=== PATIENT | male | born 1960 | race Caucasian/White ===

== ENCOUNTER → 2018-05-09 13:47 | Outpatient (BNVA) | payer OTHER, SELFPAY | PROVIDERS: PCP Emergency Medicine; Referring Provider Emergency Medicine; Visit Provider Student in an Organized Health Care Education/Training Program | DX: M25.552 Pain in left hip (principal) | CPT/HCPCS: 99213 ==

== ENCOUNTER 2018-05-17 01:15 | Outpatient (CLI) | payer OTHER, SELFPAY ==
--- NOTE | 2018-05-17 07:29 | DI.RAD_ITS ---
SYMPTOMS/DIAGNOSIS: LT HIP PAIN, M25.552 FLUOROSCOPY OF THE LEFT HIP: Fluoroscopy Time: .02 min Fluoroscopy was provided for Dr. Lerma while performing a left hip joint injection. A single hardcopy images shows a needle projecting at the superolateral aspect of the femoral head. Contrast is seen in the hip joint space. Please see procedure note for details.
[2018-05-17] MEDS: Omnipaque 300 MG/ML 10 ML BTL IJ (11:11)
[2018-05-17] MEDS: Bupivacaine 0.5% Pres-Free 10 ML VIAL 5 ML IJ (11:13)
[2018-05-17] MEDS: methylPREDNISolone ACETATE 80 MG/ML VIAL IM (11:13)
--- NOTE | 2018-05-17 12:22 | W.PROCNOTE ---
Date of service: 05/17/18 Time of Service: 09:43 Procedure Note Date of procedure: 05/17/18 Procedure: Left Hip Injection with Fluoroscopic Guidance Surgeon/Proceduralist/Physician: Jostin Lerma Procedure Diagnosis: Left Hip Osteoarthritis Procedure Indications: John has had persistent pain of the LEFT hip and groin. Noninvasive measures have been tried. He has had a previously successful injection and do the recurrence of pain desired another. I had discussed the risks of the procedure and the patient elected to proceed. Procedure Description: John was greeted in the flouroscopy room. The correct side was identified and the consent was reviewed with the patient and signed. The patient was then placed in the supine position on the fluoroscopy table. The LEFT hip was then prepped with Chloraprep. The anterolateral injection starting point was identiifed by bony landmarks and fluoroscopy. The skin and soft tissue in the tract of the injection was anesthetized with 1% Lidocaine. A spinal needle was then inserted deep into the hip joint at the level of the lateral femoral neck under fluoroscopic guidance. A small amount of Omnipaque solution was injected to confirm intraarticular placement. Once confirmed, the hip was injected with 6cc of 0.5% Bupivicaine and 80mg of Depo-Medrol. A bandaid was placed on the injection site. The patient tolerated the procedure well and noted improvement in pre-injection pain.
== END 2018-05-17 01:35 ==
PROVIDERS: PCP Emergency Medicine; Visit Provider Student in an Organized Health Care Education/Training Program
DX: M25.552 Pain in left hip (principal); M16.12 Unilateral primary osteoarthritis, left hip
CPT/HCPCS: 20610; 77002; J1040

== ENCOUNTER 2018-06-05 09:02 | Outpatient (CLI) | payer OTHER, SELFPAY ==
[2018-06-05 11:31] LABS: ALT 57 U/L (12-78); AST 37 U/L (15-37); Albumin 3.7 g/dL (3.4-5.0); Alkaline Phosphatase 55 U/L (46-116); Anion Gap 8.6 mmol/L (3-11); BUN 25 mg/dL (7-18); Bilirubin, Total 0.5 mg/dL (0.2-1.0); CO2 28.4 mmol/L (21.0-32.0); CREATININE 0.92 mg/dL (0.70-1.30); Calcium 8.3 mg/dL (8.5-10.1); Chloride 103 mmol/L (98-107); GGT 67 U/L (15-85); Glucose 98 mg/dL (70-100); Potassium 4.2 mmol/L (3.5-5.1); Sodium 140 mmol/L (136-145); Total Protein 6.5 g/dL (6.4-8.2)
== END 2018-06-05 09:22 ==
PROVIDERS: PCP Emergency Medicine; Visit Provider Emergency Medicine
DX: I10 Essential (primary) hypertension (principal); F32.9 Major depressive disorder, single episode, unspecified; K52.9 Noninfective gastroenteritis and colitis, unspecified
CPT/HCPCS: 36415; 80053; 82977

== ENCOUNTER 2018-12-20 08:12 | Outpatient (CLI) | payer OTHER, SELFPAY ==
[2018-12-20 11:33] LABS: Abs Immature Grans 0.01 k/cumm (0.0-0.09); Absolute Basophil Count 0.03 k/cumm (0.0-0.2); Absolute Eosinophil Count 0.14 k/cumm (0.0-0.7); Absolute Lymphocyte Count 1.19 k/cumm (1.2-3.4); Absolute Monocyte Count 0.42 k/cumm (0.11-0.7); Absolute Neutrophil Count 2.83 k/cumm (1.2-6.7); Basophils % 0.6; HCT 44.3 % (40.0-50.0); Immature Grans % 0.2; Lymphocytes % 25.8; Mean Corp. HGB Concentration 33.9 g/dL (32.0-36.0); Mean Corpuscular Hemoglobin 30.8 pg (27.0-33.0); Mean Platelet Volume 9.8 fL (8.0-11.0); Monocytes % 9.1; Neutrophils % 61.3; Platelet Count 280 x1000/uL (130-400); RBC 4.87 m/cumm (4.50-6.00); RBC Distribution Width 13.3 % (11.8-14.1); White Blood Cell Count 4.62 k/cumm (4.4-10.8)
[2018-12-20 11:48] LABS: ALT 45 U/L (12-78); AST 23 U/L (15-37); Albumin 3.9 g/dL (3.4-5.0); Alkaline Phosphatase 59 U/L (46-116); Anion Gap 9.7 mmol/L (3-11); BUN 19 mg/dL (7-18); Bilirubin, Total 0.4 mg/dL (0.2-1.0); C-Reactive Protein 0.13 mg/dL (0.0-0.3); CO2 28.3 mmol/L (21.0-32.0); Calcium 8.8 mg/dL (8.5-10.1); Chloride 103 mmol/L (98-107); Glucose 113 mg/dL (70-100); Potassium 4.3 mmol/L (3.5-5.1); Sodium 141 mmol/L (136-145); Total Protein 6.8 g/dL (6.4-8.2)
[2018-12-20 13:45] LABS: ESR 12 MM/HR (1-20)
[2018-12-21 09:46] LABS: Cyclic Citrullinated Peptide <2.5 U/mL (<5.0)
[2018-12-21 10:35] LABS: PSA, Screening 0.8 ng/ml (0-3.5)
[2018-12-21 11:22] LABS: Rheumatoid Factor <8 IU/mL (<12.5)
== END 2018-12-20 08:32 ==
PROVIDERS: PCP Emergency Medicine; Visit Provider Emergency Medicine
DX: K51.90 Ulcerative colitis, unspecified, without complications (principal); M25.50 Pain in unspecified joint; Z12.5 Encounter for screening for malignant neoplasm of prostate
CPT/HCPCS: 36415; 80053; 84153; 85652; 86200; 85025; 86140; 86431

== ENCOUNTER → 2019-03-14 12:47 | Outpatient (BNVA) | payer OTHER, SELFPAY | PROVIDERS: PCP Emergency Medicine; Referring Provider Emergency Medicine; Visit Provider Nurse Practitioner Gerontology | DX: N40.1 Benign prostatic hyperplasia with lower urinary tract symptoms (principal); N13.8 Other obstructive and reflux uropathy; R35.0 Frequency of micturition | CPT/HCPCS: 51798; 81003; 99204; 99214 ==

== ENCOUNTER 2019-03-14 16:04 | Outpatient (REF) | payer OTHER, SELFPAY | END 2019-03-14 16:24 | LOC: LBN 16:04 | PROVIDERS: PCP Emergency Medicine; Visit Provider Nurse Practitioner Gerontology | DX: R35.0 Frequency of micturition (principal) | CPT/HCPCS: 87086 ==

== ENCOUNTER → 2019-05-14 08:22 | Outpatient (BNVA) | payer OTHER, SELFPAY | PROVIDERS: PCP Emergency Medicine; Referring Provider Emergency Medicine; Visit Provider Nurse Practitioner Gerontology | DX: N32.81 Overactive bladder (principal) | CPT/HCPCS: 99213 ==

== ENCOUNTER → 2019-06-13 14:41 | Outpatient (BNVA) | payer OTHER, SELFPAY | PROVIDERS: PCP Emergency Medicine; Referring Provider Emergency Medicine; Visit Provider Nurse Practitioner Gerontology | DX: N32.81 Overactive bladder (principal) | CPT/HCPCS: 51798; 99213 ==

== ENCOUNTER 2021-01-13 14:09 | Outpatient (REF) | payer OTHER, SELFPAY ==
[2021-01-13 14:35] LABS: Hemoglobin A1C 5.5 % (<5.7)
== END 2021-01-13 14:10 | disposition home or self-care (01) ==
LOC: LBN 14:09
PROVIDERS: PCP Emergency Medicine; Visit Provider Emergency Medicine
DX: R63.1 Polydipsia (principal)
CPT/HCPCS: 83036

== ENCOUNTER 2021-03-12 14:51 | Outpatient (REF) | payer OTHER, SELFPAY ==
[2021-03-12 16:06] LABS: Abs Immature Grans 0.01 10^3/uL (0.0-0.06); Absolute Basophil Count 0.05 10^3/uL (0.0-0.2); Absolute Lymphocyte Count 1.85 10^3/uL (1.2-3.4); Absolute Monocyte Count 0.59 10^3/uL (0.1-0.8); Absolute Neutrophil Count 4.34 10^3/uL (1.2-6.7); Basophils % 0.7; Eosinophils % 1.4; HCT 43.3 % (40.0-50.0); HGB 14.6 g/dL (13.5-17.5); Immature Grans % 0.1; Lymphocytes % 26.7; MCH 30.1 pg (27.0-33.0); MCHC 33.7 % (32.0-36.0); MCV 89.3 fL (80-95); MPV 9.6 fL (8.0-11.0); Monocytes % 8.5; Neutrophils % 62.6; Nucleated RBC 0 %; Platelet Count 295 10^3/uL (130-400); RBC 4.85 10^6/uL (4.36-5.78); RDW 12.8 % (11.8-14.1); WBC 6.94 10^3/uL (4.4-10.8)
[2021-03-12 16:24] LABS: ALT 34 U/L (16-63); AST 21 U/L (15-37); Albumin 4.5 g/dL (3.4-5.0); Alkaline Phosphatase 58 U/L (46-116); Anion Gap 10.8 mmol/L (3-11); BUN 17 mg/dL (7-18); Bilirubin, Total 0.4 mg/dL (0.2-1.0); CO2 26.2 mmol/L (21.0-32.0); CREATININE 0.9 mg/dL (0.70-1.30); Calcium 9.1 mg/dL (8.5-10.1); Calculated LDL 138 mg/dL (<100); Chloride 104 mmol/L (98-107); Cholesterol 208 mg/dL (<200); Glucose 89 mg/dL (74-106); HDL Cholesterol 58 mg/dL (40-60); Potassium 4.1 mmol/L (3.5-5.1); Sodium 141 mmol/L (136-145); Total Protein 7.3 g/dL (6.4-8.2); Triglyceride 64 mg/dL (<150)
[2021-03-15 08:28] LABS: PSA, Screening 0.9 ng/mL (0.0-4.5)
== END 2021-03-12 14:52 | disposition home or self-care (01) ==
LOC: LBN 14:51
PROVIDERS: Family Medicine; PCP Nurse Practitioner Family; Visit Provider Nurse Practitioner Family
DX: Z13.220 Encounter for screening for lipoid disorders (principal); Z00.00 Encounter for general adult medical examination without abnormal findings; L93.0 Discoid lupus erythematosus; Z12.5 Encounter for screening for malignant neoplasm of prostate
CPT/HCPCS: 80053; 80061; 84153; 85025

== ENCOUNTER 2022-02-09 02:44 | Outpatient (CLI) | payer OTHER, SELFPAY ==
[2022-02-09 16:26] LABS: ALT 44 U/L (16-63); AST 33 U/L (15-37); Albumin 4.2 g/dL (3.4-5.0); Alkaline Phosphatase 57 U/L (46-116); Anion Gap 9.3 mmol/L (3-11); BUN 24 mg/dL (7-18); Bilirubin, Total 0.4 mg/dL (0.2-1.0); CO2 25.7 mmol/L (21.0-32.0); Calcium 8.8 mg/dL (8.5-10.1); Chloride 104 mmol/L (98-107); Glucose 78 mg/dL (74-106); Potassium 3.6 mmol/L (3.5-5.1); Sodium 139 mmol/L (136-145); Total Protein 7.4 g/dL (6.4-8.2)
== END 2022-02-09 02:45 | disposition home or self-care (01) ==
LOC: LBO 02:44
PROVIDERS: PCP Nurse Practitioner Family; Visit Provider Nurse Practitioner Family
DX: I10 Essential (primary) hypertension (principal)
CPT/HCPCS: 36415; 80053

== ENCOUNTER 2022-03-16 09:20 | Outpatient (CLI) | payer OTHER, SELFPAY ==
[2022-03-16 12:42] LABS: TSH (W/Ref FT4) 2.72 uIU/mL (0.36-3.74)
[2022-03-16 22:53] LABS: PSA, Screening 1.8 ng/mL (<=4.5)
== END 2022-03-16 09:21 | disposition home or self-care (01) ==
LOC: LOS 09:20
PROVIDERS: PCP Nurse Practitioner Family; Referring Provider Nurse Practitioner Family; Visit Provider Nurse Practitioner Family
DX: R68.89 Other general symptoms and signs (principal); N40.1 Benign prostatic hyperplasia with lower urinary tract symptoms; N13.8 Other obstructive and reflux uropathy; Z12.5 Encounter for screening for malignant neoplasm of prostate
CPT/HCPCS: 36415; 84153; 84443

== ENCOUNTER 2022-06-10 11:17 | Outpatient (CLI) | payer OTHER, SELFPAY ==
--- NOTE | 2022-06-10 11:00 | DI.RAD_ITS ---
Exam(s) XR HIP LT COMPLETE AP PELVIS EXAM: XR HIP LT COMPLETE AP PELVIS CLINICAL HISTORY: pain in hip. TECHNIQUE: 2D digital imaging was performed. FINDINGS: Two views: No evidence of pelvic nor hip fracture. No significant joint space narrowing. No osteophytes at the femoral head levels. There is small degenerative subarticular cysts in the superolateral aspects of both acetabuli. Bone density normal. No osseous lesions. IMPRESSION: As above but no joint space narrowing. DATA REPOSITORY: RADIATION DOSE DELIVERED:
--- NOTE | 2022-06-10 11:30 | DI.RAD_ITS ---
Exam(s) XR LUMBAR SPINE AP, LAT EXAM: XR LUMBAR SPINE AP, LAT CLINICAL HISTORY: pain. TECHNIQUE: 2D digital imaging was performed. COMPARISON: No exams were available for comparison FINDINGS: Two views-AP and lateral: There are 5 vertebrae of lumbar configuration. There is no evidence of fracture or listhesis and the re are no pars defects. There is moderate disc space narrowing at L4-5 level. Mild disc space narrowing at L2-3 level althou gh there is some posterior osseous lipping at this level noted. Other disc spaces including L5-S1 ex hibit normal height. There is no scoliosis. Mild degenerative changes in the facets. Sacroiliac anthony ints appear unremarkable. No osseous lesions. IMPRESSION: Degenerative disc disease as described above. DATA REPOSITORY: RADIATION DOSE DELIVERED:
== END 2022-06-10 11:18 | disposition home or self-care (01) ==
PROVIDERS: PCP Nurse Practitioner Family; Referring Provider Nurse Practitioner Family; Visit Provider Physician Assistant Surgical
DX: M25.552 Pain in left hip (principal); M51.36 Other intervertebral disc degeneration, lumbar region
CPT/HCPCS: 72100; 73502

== ENCOUNTER → 2022-06-24 00:49 | Outpatient (CLI) | payer OTHER, SELFPAY ==
--- NOTE | 2022-06-24 07:30 | DI.MRI_ITS ---
Exam(s) MR LUMBAR SPINE WO EXAM: MR LUMBAR SPINE WO CLINICAL HISTORY: failed injections, acute rt hip pain, m25.551. TECHNIQUE: Multiplanar multisequence MRI of the Lumbar spine was performed. COMPARISON: MR MRI - LUMBAR SPINE WO CONTRAST from 06/10/2010 CR XR LUMBAR SPINE AP, LAT from 06/10/2022 FINDINGS: Conus medullaris is at normal level. There is no evidence of conus mass nor subjacent clumping of in trathecal nerve roots to suggest arachnoiditis. The distal thecal sac appears unremarkable.There is no evidence of Tarlov intrasacral cysts nor other significant findings within the sacral canal Bones:There are no fractures nor ominous osseous lesions in the lumbar vertebral bodies and visualize d sacrum. With respect to the individual levels... T12-L1: Unremarkable L1-2: Normal disc height and signal. No disc herniation nor central canal stenosis.No foraminal steno sis L2-3: Mild decreased disc height. Broad symmetrical annular bulging. Mild-moderate central spinal c anal stenosis due to the broad annular bulging, short AP dimensions the pedicles and mild degenerativ e changes in the facet joints the annular bulging extends into the floor both exiting neural foramina but there is no prominent foraminal stenosis evident on either side. L3-4: This level exhibits minimal disc space narrowing. Anterior osseous lipping. Posteriorly there i s broad annular bulging, most prominent central subligamentous. There is severe central spinal canal stenosis at this level due to the broad annular bulging, short AP dimensions of the pedicles. There i s mild degenerative change in the facets. Annular bulging extends into the exiting neural foramen tod or but there is no significant foraminal stenosis. L4-5: This level exhibits moderate disc height loss and Modic type 2 sub endplate fatty marrow change s on the left side of this disc space. There is symmetrical annular bulging which extends into the fl oor of the exiting neural foramina bilaterally. There is mild-moderate central spinal canal stenosis. Mild foraminal stenosis on the left side. Mild-moderate on the right side where there is slightly mo re disc height loss. Only mild facet joint degenerative changes noted. L5-S1: This level exhibits normal disc height and signal. There is no evidence of disc herniation or central spinal canal stenosis at this level. Also no foraminal stenosis at this level. Facet joints a ppear unremarkable at this level. Soft tissues: paraspinal soft tissues appear unremarkable. IMPRESSION: 1. Multilevel central spinal canal stenosis, most evident at L3-4 level, as described above. 2. There is multilevel spinal canal stenosis due to broad annular bulging at these levels as well is developmental short AP dimensions of the pedicles. There is only mild facet arthropathy. 3. Although there is significant multilevel central canal stenosis there is only mild foraminal steno sis, this related to the relatively preserved disc height. There is an element of foraminal stenosis on the right side at L4-5 level; less so at the other the exiting neural foramina. 4. The L5-S1 level appears unremarkable and is most probably stabilized by an element of sacralizatio n of the L5 segment at the level of the transverse processes. DATA REPOSITORY:
== END ==
PROVIDERS: PCP Nurse Practitioner Family; Visit Provider Nurse Practitioner Family
DX: M48.061 Spinal stenosis, lumbar region without neurogenic claudication (principal); M48.07 Spinal stenosis, lumbosacral region
CPT/HCPCS: 72148

== ENCOUNTER 2022-12-16 08:47 | Outpatient (CLI) | payer OTHER, SELFPAY ==
[2022-12-16 12:52] LABS: HCT 42.3 % (40.0-50.0); HGB 14.4 g/dL (13.5-17.5); MCH 30.8 pg (27.0-33.0); MCV 90 fL (80-95); MPV 9.7 fL (8.0-11.0); Platelet Count 327 10^3/uL (130-400); RBC 4.68 10^6/uL (4.36-5.78); RDW 13.2 % (11.8-14.1); RDW-SD 43.6 fL; WBC 6.53 10^3/uL (4.4-10.8)
[2022-12-16 13:05] LABS: ALT 47 U/L (16-63); AST 27 U/L (15-37); Albumin 4.2 g/dL (3.4-5.0); Alkaline Phosphatase 61 U/L (46-116); Anion Gap 7.9 mmol/L (3-11); BUN 21 mg/dL (7-18); Bilirubin, Total 0.5 mg/dL (0.2-1.0); CO2 28.1 mmol/L (21.0-32.0); CREATININE 0.9 mg/dL (0.70-1.30); Calcium 8.9 mg/dL (8.5-10.1); Chloride 104 mmol/L (98-107); Estimated GFR 96.57 (mL/min/1.73m2); Glucose 110 mg/dL (74-106); Magnesium 2.2 mg/dL (1.8-2.4); Potassium 3.9 mmol/L (3.5-5.1); Sodium 140 mmol/L (136-145); Total Protein 7.5 g/dL (6.4-8.2)
[2022-12-19 10:05] LABS: Lyme Ab w Rflx to Lyme Confirm Negative (Negative)
[2022-12-20 15:36] LABS: Anaplasma phagocytophilum Negative (Negative); B. miyamotoi PCR Negative (Negative); Babesia divergens/MO-1 Negative (Negative); Babesia duncani Negative (Negative); Babesia microti Negative (Negative); Ehrlichia chaffeensis Negative (Negative); Ehrlichia ewingii/canis Negative (Negative); Ehrlichia muris eauclairensis Negative (Negative)
== END 2022-12-16 08:48 | disposition home or self-care (01) ==
LOC: LOS 08:47
PROVIDERS: PCP Nurse Practitioner Family; Referring Provider Nurse Practitioner Family; Visit Provider Nurse Practitioner Family
DX: R53.83 Other fatigue (principal); W57.XXXA Bitten or stung by nonvenomous insect and other nonvenomous arthropods, initial encounter; T14.8XXA Other injury of unspecified body region, initial encounter
CPT/HCPCS: 36415; 80053; 85027; 87798; 83735; 86618

== ENCOUNTER 2023-03-17 11:49 | Outpatient (CLI) | payer OTHER, SELFPAY | END 2023-03-17 11:50 | disposition home or self-care (01) | LOC: LOS 11:49 | PROVIDERS: PCP Nurse Practitioner Family; Referring Provider Nurse Practitioner Family; Visit Provider Nurse Practitioner Family | DX: N13.8 Other obstructive and reflux uropathy (principal); N40.1 Benign prostatic hyperplasia with lower urinary tract symptoms | CPT/HCPCS: 36415; 84154 ==

== ENCOUNTER 2023-06-05 07:34 | Day surgery (SDC) | payer OTHER, SELFPAY ==
--- NOTE | 2023-06-04 18:36 | W.PM.DSUDISC ---
Date of service: 06/05/23 Time of Service: 09:32 Discharge Plan Disposition Patient Disposition: Home Condition: Good Discharge Details Reason For Visit: Screening colonoscopy Attending Provider: Koko Stevens Primary Care Provider: Juan Antonio Mccormick Home Meds and New Rx's Prescriptions: Continued sertraline 50 mg tablet 50 mg PO DAILY Qty: 90 3RF sertraline 100 mg tablet See Rx Instructions .ROUTE .COMPLEX Qty: 90 3RF Dose Instruction: take 1 tablet (100mg) by mouth daily Rx Instructions: take 1 tablet (100mg) by mouth daily tamsulosin 0.4 mg capsule 0.8 mg PO DAILY Qty: 180 0RF fluticasone propion-salmeterol [Advair Diskus] 250-50 mcg/dose blister with device 1 inh inhalation BID Qty: 60 3RF hydroxychloroquine [Plaquenil] 200 mg tablet 400 mg PO DAILY Qty: 180 3RF amlodipine 10 mg tablet 10 mg PO DAILY Qty: 90 3RF Discontinued polyethylene glycol 3350 17 gram/dose powder 238 g PO ONCE Qty: 238 0RF Rx Instructions: take per colonoscopy instructions bisacodyl [Dulcolax (bisacodyl)] 5 mg tablet,delayed release (DR/EC) 5 mg PO ONCE Qty: 4 0RF Rx Instructions: take per colonoscopy instructions Discharge Instructions Instructions: Diverticulosis (GEN), Colorectal Polyps (GEN), Diverticulosis Diet (GEN) Additional Instructions: John, we were able to complete your colonoscopy today without any difficulty. You have just a few tiny spots of inflammation within the rectal vault, which is consistent with your ulcerative colitis. Generally, it appears very well managed. I did find a total of 3 polyps. One was within the colon, approximately 50 cm from your anus, the other 2 were in the rectal vault. I removed all of these, and will send them out for an official pathology report. Once I have those results, I will be in touch with my recommendations for your next colonoscopy. Incidentally, you also have some diverticulosis. Diverticula are small weak spots in the colon wall that typically accumulate with age. I have attached some general information here regarding diverticulosis and its management. 1. If tolerated, consume a soft, low fiber diet for 1-2 days. 2. Do not drive, drink alcohol, operate machinery, make critical decisions, or do activities that require coordination or balance for 24 hours. 3. Because air was put into your colon during the procedure, expelling air from your rectum (passing gas or farting) is normal. 4. You may not have a bowel movement for 1-3 days because of the colonoscopy prep. This is normal. 5. Go directly to the emergency room if you notice any of the following: Develop chills (warm to touch), or if you have a thermometer and your temperature is above 101 Difficulty breathing or difficultly swallowing Persistent vomiting Severe abdominal pain, other than gas cramps Severe chest pain Black, tarry stools Any bleeding ? exceeding one tablespoon 6. Call your physician if the site where your intravenous was started becomes red, swollen, painful, and warm to touch. 7. Your physician has reviewed your pre-procedure medications. Please continue to take those medications as previously ordered. You will be given specific information/education regarding any changes to your medications before leaving. Activity:: Activity as Tolerated Diet:: As Tolerated Discharge Orders Discharge Orders: Discharge Order (Routine); Ordered 06/04/23 Ordered By: Koko Stevens
--- NOTE | 2023-06-04 18:37 | W.COLOREPORT ---
Date of service: 06/05/23 Time of Service: 09:35 Colonoscopy Report Date of procedure: 06/05/23 Pre-op diagnosis general: Screening colonoscopy Post-op diagnosis procedure note: other (Diverticulosis, polyps, ulcerative colitis) Procedure: Colonoscopy with polypectomy Surgeon: Koko Stevens Anesthesia Type: General:No Airway Estimated blood loss (mL): 5 Pathology: other (0.75 cm polyp at 50 cm, 0.25 cm polyps in the rectum x2) Complications: None Disposition: same day Indications: John is a 63 year old man with a history of adenomatous polyps who needs another screening colonoscopy Prep: Miralax/Dulcolax Procedure Start Time: 08:59 Procedure End Time: 09:18 Retraction Time: 11 Findings: Minimal rectal ulceration, rectal polyps x2, diverticulosis, colon polyp at 50 cm Procedure Description: After the induction of monitored anesthetic care, and with the patient in left lateral decubitus position, I began by performing an external anorectal exam.? Perineum and skin were normal, as was the anal verge.? There was no evidence of external hemorrhoids.? Next, I performed a digital rectal exam.? I did not appreciate any abnormal findings.? Next, I advanced a colonoscope into the rectal vault.? I performed retroflexion.? This appeared normal.? Within the rectum there were 2 small areas of inflammation. Both were flat, margins all looked healthy. They seem consistent with very well-controlled ulcerative colitis. Using insufflation, I then advanced the colonoscope beyond the rectal folds and into the sigmoid colon before advancing towards the cecum.? There was some sigmoid diverticulosis. The scope was noted to be in the cecum by identification of the ileocecal valve and appendiceal orifice.? I then began withdrawing the colonoscope using repeated irrigation as necessary for full evaluation of the colonic mucosa. Around 50 cm from the anal verge I identified a 0.75 cm polyp. ?It appeared sessile in character. ?I was able to remove this with multiple bites of a cold forcep. ?I examined the site, and there was minimal bleeding. ?Once this was completed, I continued to withdraw the scope and examine the remainder of the colonic mucosa.?Once the scope was withdrawn to the level of the rectum, great care was taken to examine portions of the rectal folds.? Within the rectal vault were two 0.25 cm sessile rectal polyps. These were also removed with cold forceps. There was minimal bleeding here. Finally, the scope was withdrawn and the patient was brought to the same-day surgery recovery unit as the anesthetic wore off. ?The findings and instructions were shared with the patient prior to discharge.
[2023-06-05 07:40] VITALS: BP 143/78; PULSE 62; RESP 16; TEMP 36.7; O2SAT 94
--- NOTE | 2023-06-05 08:24 | W.ANESPRE ---
General Info Date of Service Date Performed: 06/05/23 Height: 6 ft Weight: 90.9 kg Body Mass Index (BMI): 27.1 Surgical Procedure: Operation Date: 06/05/23 09:05 Proposed Procedure Side Surgeon yanely Stevens MD Meds Allergies and Home Medications Allergies Allergy/AdvReac Type Severity Reaction Status Date / Time Tetanus Vaccines and Toxoid Allergy Severe COLD Verified 06/02/23 09:52 [Tetanus Vaccines \T\ Toxoid] SWEATS naproxen AdvReac Unknown WORSENING Verified 06/02/23 09:52 ULCERATIVE COLITIS zolpidem AdvReac Unknown MUSCLE Verified 06/02/23 09:52 TWITCH Home Medication Medication Instructions Recorded fluticasone 250 mcg-salmeterol 50 1 inh inhalation BID #60 ea 03/24/21 mcg/dose blistr powdr for inhalation (Advair Diskus) hydroxychloroquine 200 mg tablet 400 mg (2 x 200 mg) PO DAILY 11/17/22 (Plaquenil) discoid lupus #180 tabs sertraline 100 mg tablet See Rx Instructions .Route 03/17/23 .COMPLEX #90 tabs sertraline 50 mg tablet 50 mg PO DAILY #90 tabs 03/17/23 tamsulosin 0.4 mg capsule 0.8 mg (2 x 0.4 mg) PO DAILY #180 03/17/23 caps amlodipine 10 mg tablet 10 mg PO DAILY #90 tabs 05/19/23 Current Visit Medications: Current Medications Generic Name Dose Route Start Last Admin Trade Name Freq PRN Reason Stop Dose Admin Hyoscyamine Sulfate 0.125 mg 06/04/23 18:39 Hyoscyamine 0.125 Mg Sl/Oral/Chew SL 07/04/23 18:38 DIRECTED PRN Ringer's Solution 1,000 mls @ 80 mls/hr 06/05/23 06:00 IV 07/02/23 23:59 INFUSION [facility] IV Miscellaneous Supplies 1 each 06/05/23 06:00 Iv Access IV 07/02/23 23:59 DIRECTED [facility] Ondansetron HCl 4 mg 06/04/23 18:39 Ondansetron 4 Mg/2 Ml Vial IVP 07/04/23 18:38 Q4H PRN PRN Nausea / Vomiting Sodium Chloride 0 ml 06/05/23 06:00 Normal Saline Flush 10 Ml Syr IV 07/02/23 23:59 PRN PRN Sodium Chloride 0 ml 06/05/23 06:00 Normal Saline 10 Ml Vial IJ 07/02/23 23:59 DIRECTED PRN Sterile Water 0 ml 06/05/23 06:00 Water,Injection,Sterile 10 Ml Vial IJ 07/02/23 23:59 DIRECTED PRN PFSH Active Problems Active Problems: Problem Status Onset Code Fatigue R53.83 Tick bite W57.XXXA Greater trochanteric bursitis of left hip M70.62 Acute right hip pain M25.551 Essential hypertension I10 Abdominal pain R10.9 Polydipsia R63.1 BPH w urinary obs/LUTS N40.1, N13.8 Ulcerative colitis K51.90 Tubular adenoma of colon D12.6 Sexual function problem F52.9 Irritable bowel syndrome without diarrhea 12/07/16 K58.9 Insomnia 12/07/16 G47.00 History of tobacco use Z87.891 Heart murmur R01.1 Diverticulosis of colon without diverticulitis K57.30 Discoid lupus erythematosus L93.0 Dermatitis L30.9 Depression 12/07/16 F32.9 Carpal tunnel syndrome 07/16/13 G56.00 Medical History Medical History Spinal stenosis surgery 2006 Medical History Comments:: current smokeless tobacco; last chewed evening 06/04 Surgical History Surgical History History of spinal surgery Status post appendectomy Status post rotator cuff repair (08/04/15) spinal repair (~2006) Rotator Cuff Repair 08/04/15 [facility];RIGHT Colonoscopy - [facility] 2009 Tobacco Smoking/Tobacco Use Status: Current every day Tobacco Type: smokeless tobacco Smokeless tobacco user: snuff Passive smoking exposure: Yes Second hand exposure: Yes Alcohol Alcohol Intake: former Substance Use Substance use: Never Substance use type: does not use Vital Signs and Lab Results Vital Signs Most Recent Vital Signs in EMR: Most Recent Vital Signs Temp Pulse Resp BP Pulse Ox 36.7 C 62 16 143/78 H 94 06/05/23 07:40 06/05/23 07:40 06/05/23 07:40 06/05/23 07:40 06/05/23 07:40 Lab Results Blood Type / Crossmatch: No Data to Display Complete Blood Count: No Data to Display Complete Metabolic Panel: No Data to Display Liver Function Panel: No Data to Display Coagulation Panel: No Data to Display Cardiac Panel: No Data to Display Arterial Blood Gas: No Data to Display Venous Blood Gas: No Data to Display Pancreas Panel: No Data to Display Thyroid Panel: No Data to Display Infectious Disease: No Data to Display Blood Cultures: No Data to Display Toxicology Panel: No Data to Display Anesthesia Assessment and Plan Anesthesia History Personal History: No History of Anesthesia Complications Family History: No Family History of Anesthesia Complications Exercise Tolerance Exercise Tolerance: Metabolic Equivalents>4 Pertinent Negatives Pertinent Negatives: No Symptoms of GERD and No History of CVA/TIA Cardiac & Pulmonary Exam Cardiac Exam: Heart Murmur Present (Has been evaluated per patient: Noted most over mitral, strong early murmur. ) Pulmonary Exam: Wheezing Present (L>R) and Active Cough or Cold (Patient reports productive cough over the last few weeks (feels that it is the weather). Discussed risk at length, no cough over the past few days, decision to proceed as patient has completed his preparation for his colonoscopy. ) Implantable Cardiac Device Does patient have a Pacemaker or an ICD?: No Airway Exam Known Difficult Airway: No Mallampati Class: 2 Mouth Opening: Normal (> 3cm) Thyromental Distance: Greater than 3 cm Neck Range of Motion: Full ROM Neck Circumference: Normal Teeth Condition: Normal Dentition and Generalized Poor Dentition ASA Classification ASA Score: ASA 2 Emergency Case?: No NPO Status NPO Status: NPO Clears >2 hours, Solids >8 hours Anesthesia Plan Resuscitation Status: Full Code Anesthesia Technique: General Anesthesia Airway Planned: Natural Airway Monitors Used: Standard Monitors
[2023-06-05] MEDS: Lactated Ringers 1,000 ML 80 ML IV (08:26)
[2023-06-05 08:45] VITALS: BMI 27.1
--- NOTE | 2023-06-05 09:10 | BOWEL_PTH ---
PATIENT: Austin Glass LOC: [facility] U#:[id number] AGE/SX: 63/M ROOM: RE06/05/[address]: Koko Stevens MD : 1960 BED: DIS: 06/05/2023 SPEC #: [id number] RECD: 06/05/23 12:41 STATUS: [facility]MES REQ #: [id number] ANNA: 06/05/23 09:[address]: Koko Stevens DEPT: Surgical Specimen RECD BY: Rosa Woods ENTERED: 06/05/23 12:42 SP TYPE: Bowel OTHR DR: Juan Antonio Mccormick, CONTRACT ANALYST Tissues: 1 - BIOPSY BOWEL 2 - BIOPSY BOWEL Procedures: GROSS AND MICRO LEVEL 4 Comments: [id number]
[2023-06-05 09:15] VITALS: BP 121/59; PULSE 55; RESP 16; TEMP 36.3; O2SAT 99
[2023-06-05 09:22] VITALS: BP 119/108; PULSE 56; RESP 14; TEMP 36.2; O2SAT 92
[2023-06-05 10:03] VITALS: BP 129/72; PULSE 56; RESP 16; TEMP 36.4; O2SAT 97
--- NOTE | 2023-06-05 10:14 | W.ANESPOSTOP ---
Postoperative Evaluation Date, Time and Location Date Performed: 06/05/23 Time Performed: 09:22 Patient Location: Day Surgery Unit Vital Signs Most Recent Imported Vital Signs: Most Recent Vital Signs Temp Pulse Resp BP Pulse Ox 36.4 C L 56 L 16 129/72 97 06/05/23 10:03 06/05/23 10:03 06/05/23 10:03 06/05/23 10:03 06/05/23 10:03 Pain Score Most Recent Pain Score: Most Recent Pain Score Pain Level 0 06/05/23 10:03 Assessment Mental Status: Awake (Alert & Oriented to Patient Baseline) Airway and Respiratory Function: Patent airway with normal (patient baseline) respiratory exam Cardiovascular Function: Hemodynamically Stable Hydration Status: Adequately Hydrated Nausea & Vomiting: No Nausea or Vomiting Pain: Pt. Denies Any Pain Peripheral Nerve Block: Patient did not receive a nerve block
== END 2023-06-05 10:35 | disposition home or self-care (01) ==
LOC: SUR 07:34
PROVIDERS: PCP Nurse Practitioner Family; Visit Provider Surgery
PROC: 0DJD8ZZ Inspection of Lower Intestinal Tract, Via Natural or Artificial Opening Endoscopic (ICD-10-PCS; CPT 45378; principal; 2023-06-05 09:00)
DX: Z12.11 Encounter for screening for malignant neoplasm of colon (principal); Z86.010 Personal history of colon polyps; K51.90 Ulcerative colitis, unspecified, without complications; D12.5 Benign neoplasm of sigmoid colon; K57.30 Diverticulosis of large intestine without perforation or abscess without bleeding; I10 Essential (primary) hypertension
CPT/HCPCS: 45380; 88305; J2001

== ENCOUNTER 2023-06-28 11:01 | Outpatient (CLI) | payer OTHER, SELFPAY ==
[2023-06-28 10:10] LABS: TSH (W/Ref FT4) 4.39 uIU/mL (0.36-3.74); Vitamin B12 261 pg/mL (193-986)
[2023-06-28 10:27] LABS: FREE T4 0.93 ng/dL (0.76-1.46)
[2023-06-29 10:18] LABS: Syphilis Serology (RPR) Negative (Negative)
== END 2023-06-28 11:02 | disposition home or self-care (01) ==
LOC: LBO 11:01
PROVIDERS: PCP Nurse Practitioner Family; Visit Provider Nurse Practitioner Family
DX: R41.3 Other amnesia (principal)
CPT/HCPCS: 36415; 82607; 84439; 84443; 86592

== ENCOUNTER → 2023-07-21 00:55 | Outpatient (CLI) | payer OTHER, SELFPAY ==
--- NOTE | 2023-07-21 09:10 | DI.RAD_ITS ---
Exam(s) XR LUMBAR SPINE COMPLETE EXAM: XR LUMBAR SPINE COMPLETE CLINICAL HISTORY: acute back pain,M54.9. TECHNIQUE: 2D digital imaging was performed. Five views. Exam was performed upright COMPARISON: CR XR LUMBAR SPINE AP, LAT from 06/10/2022 MR MR LUMBAR SPINE WO from 06/24/2022 FINDINGS: BONES: No fracture or destructive lesion. Vertebral body heights are maintained. Multilevel endplate osteophytes. Facet degenerative changes at L4-5 and L5-S1. No spondylolysis. DISKS: Mild disc space narrowing at L 2 3 and moderate disc space narrowing at L 4 5, unchanged. ALIGNMENT: Lumbar spinal alignment is within normal limits. SOFT TISSUE: Normal. IMPRESSION: Stable degenerative changes. DATA REPOSITORY: RADIATION DOSE DELIVERED:
== END ==
PROVIDERS: PCP Nurse Practitioner Family; Visit Provider Nurse Practitioner Family
DX: M51.36 Other intervertebral disc degeneration, lumbar region (principal)
CPT/HCPCS: 72110

== ENCOUNTER → 2023-12-19 01:37 | Outpatient (CLI) | payer OTHER, SELFPAY ==
--- NOTE | 2023-12-19 06:30 | DI.MRI_ITS ---
Exam(s) MR BRAIN WO EXAM: MR BRAIN WO CLINICAL HISTORY: memory issues,memory loss,r41.3 TECHNIQUE: Multiplanar multisequence MRI of the brain was performed. COMPARISON: No exams were available for comparison FINDINGS: CEREBRAL PARENCHYMA: There is no evidence of intracranial hemorrhage, mass effect, or shift of midline structures. There are no extra-axial fluid collections. Ventricles are not enlarged or shifted. There is no significant focal signal abnormality in the cerebellar hemispheres nor within the aguilar, m idbrain, and thalami. There is no abnormal signal abnormality in the periventricular white matter. There are few tiny FLAI R bright foci of nonspecific signal abnormality in the periventricular white matter, all less than 3m m. There is no significant focal signal abnormality evident on diffusion imaging to suggest acute ischem ic event. The amount of involutional change is consistent with patient's age. PITUITARY GLAND: No mass nor parasellar abnormality. No obvious abnormality in the cavernous sinuses. FLOW VOIDS: The expected flow void are noted. No evidence of obvious aneurysm nor obvious vascular ma lformation. PARANASAL SINUSES: There few retention cysts in the right maxillary sinus. Left maxillary sinus is c lear as are the other paranasal sinuses. Mastoid air cells are clear. ORBITS: No obvious findings. IMPRESSION: No significant intracranial findings on this noninfused MRI scan of the brain. There are few bilateral tiny 2-3 mm FLAIR bright foci in the bilateral periventricular white matter. These are nonspecific and are not associated with hemorrhage, surrounding edema, nor restricted diff usion. Right maxillary sinus findings as above. DATA REPOSITORY:
== END ==
PROVIDERS: PCP Nurse Practitioner Family; Visit Provider Nurse Practitioner Adult Health
DX: R41.3 Other amnesia (principal)
CPT/HCPCS: 70551

== ENCOUNTER 2024-01-19 09:27 | Outpatient (CLI) | payer OTHER, SELFPAY ==
[2024-01-19 10:25] LABS: Vitamin B12 645 pg/mL (193-986)
[2024-01-19 20:36] LABS: PSA, Screening 1.4 ng/mL (<=4.5)
== END 2024-01-19 09:28 | disposition home or self-care (01) ==
LOC: LBO 09:27
PROVIDERS: Nurse Practitioner Adult Health; PCP Nurse Practitioner Family; Visit Provider Nurse Practitioner Family
DX: R39.9 Unspecified symptoms and signs involving the genitourinary system (principal); R79.89 Other specified abnormal findings of blood chemistry
CPT/HCPCS: 36415; 84153; 82607

== ENCOUNTER 2024-01-26 19:07 | Outpatient (CLI) | payer OTHER, SELFPAY ==
--- NOTE | 2024-01-26 | DI.RAD_ITS ---
Exam(s) XR ABDOMEN FLAT UPRIGHT EXAM: XR ABDOMEN FLAT UPRIGHT CLINICAL HISTORY: IBD, K52.9; Acute generalized abd pain, R10.84; Diarrhea, R19.7. TECHNIQUE: 2D digital imaging was performed. COMPARISON: No exams were available for comparison FINDINGS: Two views-supine and upright On the upright view there are few air-fluid levels noted within nondilated small bowel loops in the r ight-side of the abdomen. There is air seen throughout the colon. No free air subjacent to the abi diaphragms. Degenerative changes are noted in the lumbar spine. IMPRESSION: Probable I ileus. There is air seen throughout the colon. No evidence of high-grade bowel obstructi on. No free air. DATA REPOSITORY: RADIATION DOSE DELIVERED:
[2024-01-26 16:42] LABS: ESR 14 mm/hr (0-20)
[2024-01-26 16:43] LABS: Abs Immature Grans 0.03 10^3/uL (0.0-0.06); Absolute Basophil Count 0.08 10^3/uL (0.0-0.2); Absolute Eosinophil Count 0.09 10^3/uL (0.0-0.7); Absolute Lymphocyte Count 2.13 10^3/uL (1.2-3.4); Absolute Monocyte Count 0.69 10^3/uL (0.1-0.8); Absolute Neutrophil Count 6.15 10^3/uL (1.2-6.7); Basophils % 0.9 %; HCT 44.3 % (40.0-50.0); HGB 15.1 g/dL (13.5-17.5); Immature Grans % 0.3 %; Lymphocytes % 23.2 %; MCHC 34.1 % (32.0-36.0); MCV 91 fL (80-95); MPV 9.1 fL (8.0-11.0); Monocytes % 7.5 %; Neutrophils % 67.1 %; Platelet Count 261 10^3/uL (130-400); RBC 4.87 10^6/uL (4.36-5.78); RDW 12.3 % (11.8-14.1); RDW-SD 40.9 fL; WBC 9.17 10^3/uL (4.4-10.8)
[2024-01-26 17:09] LABS: ALT 42 U/L (16-63); AST 22 U/L (15-37); Albumin 4.2 g/dL (3.4-5.0); Alkaline Phosphatase 61 U/L (46-116); Anion Gap 11.5 mmol/L (3-11); BUN 18 mg/dL (7-18); Bilirubin, Total 0.36 mg/dL (0.2-1.0); C-Reactive Protein < 0.50 mg/dL (<or=0.5); CO2 24.5 mmol/L (21.0-32.0); CREATININE 0.8 mg/dL (0.70-1.30); Calcium 8.7 mg/dL (8.5-10.1); Chloride 106 mmol/L (98-107); Estimated GFR 99.44 (mL/min/1.73m2); Glucose 82 mg/dL (74-106); Potassium 3.9 mmol/L (3.5-5.1); Sodium 142 mmol/L (136-145); Total Protein 7.6 g/dL (6.4-8.2)
== END 2024-01-26 19:08 | disposition home or self-care (01) ==
LOC: LBO 19:09
PROVIDERS: PCP Nurse Practitioner Family; Visit Provider Nurse Practitioner Adult Health
DX: K52.9 Noninfective gastroenteritis and colitis, unspecified (principal); R10.84 Generalized abdominal pain; R19.7 Diarrhea, unspecified
CPT/HCPCS: 36415; 80053; 85652; 74019; 85025; 86140

== ENCOUNTER 2024-01-28 11:52 | Outpatient (REF) | payer OTHER, SELFPAY ==
[2024-02-01 19:07] LABS: Calprotectin 178 mcg/g
== END 2024-01-28 11:53 | disposition home or self-care (01) ==
LOC: LBN 11:52
PROVIDERS: PCP Nurse Practitioner Family; Visit Provider Nurse Practitioner Adult Health
DX: K52.89 Other specified noninfective gastroenteritis and colitis (principal)
CPT/HCPCS: 83993

== ENCOUNTER 2024-05-15 08:37 | Outpatient (CLI) | payer OTHER, SELFPAY ==
[2024-05-15 09:24] LABS: Abs Immature Grans 0.02 10^3/uL (0.0-0.06); Absolute Basophil Count 0.06 10^3/uL (0.0-0.2); Absolute Eosinophil Count 0.23 10^3/uL (0.0-0.7); Absolute Lymphocyte Count 1.52 10^3/uL (1.2-3.4); Absolute Monocyte Count 0.53 10^3/uL (0.1-0.8); Absolute Neutrophil Count 3.92 10^3/uL (1.2-6.7); Eosinophils % 3.7 %; HCT 41.7 % (40.0-50.0); HGB 14.1 g/dL (13.5-17.5); Immature Grans % 0.3 %; Lymphocytes % 24.2 %; MCH 30.7 pg (27.0-33.0); MCHC 33.8 % (32.0-36.0); MCV 91 fL (80-95); MPV 9.1 fL (8.0-11.0); Monocytes % 8.4 %; Neutrophils % 62.4 %; Platelet Count 304 10^3/uL (130-400); RDW 12.7 % (11.8-14.1); WBC 6.28 10^3/uL (4.4-10.8)
[2024-05-15 09:50] LABS: ALT 50 U/L (16-63); AST 27 U/L (15-37); Albumin 3.7 g/dL (3.4-5.0); Alkaline Phosphatase 73 U/L (46-116); Anion Gap 12.4 mmol/L (3-11); BUN 19 mg/dL (7-18); Bilirubin, Total 0.39 mg/dL (0.2-1.0); CO2 25.6 mmol/L (21.0-32.0); CREATININE 0.9 mg/dL (0.70-1.30); Calcium 9.2 mg/dL (8.5-10.1); Calculated LDL 128 mg/dL (<100); Chloride 107 mmol/L (98-107); Cholesterol 190 mg/dL (<200); Estimated GFR 95.37 (mL/min/1.73m2); Glucose 107 mg/dL (74-106); HDL Cholesterol 49 mg/dL (40-60); Potassium 4.2 mmol/L (3.5-5.1); Sodium 145 mmol/L (136-145); Total Protein 7.5 g/dL (6.4-8.2); Triglyceride 67 mg/dL (<150)
[2024-05-15 09:51] LABS: Hemoglobin A1C 5.6 % (<5.7)
[2024-05-16 10:28] LABS: Lyme Ab w Rflx to Lyme Confirm Negative (Negative)
[2024-05-17 23:54] LABS: Anaplasma phagocytophilum Negative (Negative); B. miyamotoi PCR Negative (Negative); Babesia divergens/MO-1 Negative (Negative); Babesia duncani Negative (Negative); Babesia microti Negative (Negative); Ehrlichia chaffeensis Negative (Negative); Ehrlichia ewingii/canis Negative (Negative); Ehrlichia muris eauclairensis Negative (Negative)
== END 2024-05-15 08:38 | disposition home or self-care (01) ==
LOC: LBO 08:37
PROVIDERS: PCP Nurse Practitioner Family; Visit Provider Family Medicine
DX: Z13.220 Encounter for screening for lipoid disorders (principal); Z13.1 Encounter for screening for diabetes mellitus; Z12.5 Encounter for screening for malignant neoplasm of prostate; M35.3 Polymyalgia rheumatica
CPT/HCPCS: 36415; 80053; 80061; 84153; 87798; 83036; 85025; 86618

== ENCOUNTER 2024-05-22 17:02 | Outpatient (CLI) | payer OTHER, SELFPAY ==
--- NOTE | 2024-05-22 17:00 | RT.EKG_ITS ---
APPROVED REPORT Exam: Resting ECG Reason for Exam: chest discomfort Patient Location: O HR:65 bpm ECG Measurements Heart Rate 65 AXIS UT 134 P 64 QRSd 103 QRS 34 QT 405 T 42 QTc 422 Conclusion Sinus rhythm...normal P axis, V-rate 50- 99 Normal Electrocardiogram
== END 2024-05-22 17:03 | disposition home or self-care (01) ==
LOC: DI.CM 17:03
PROVIDERS: PCP Nurse Practitioner Family; Visit Provider Nurse Practitioner Family
DX: R07.89 Other chest pain (principal)
CPT/HCPCS: 93010

== ENCOUNTER 2024-05-22 17:45 | Emergency (ER) | payer OTHER, SELFPAY ==
--- NOTE | 2024-05-22 17:45 | RT.EKG_ITS ---
APPROVED REPORT Exam: Resting ECG Reason for Exam: Chest Pain Patient Location: E HR:65 bpm ECG Measurements Heart Rate 65 AXIS NH 81 P 52 QRSd 104 QRS 18 QT 393 T 34 QTc 408 Conclusion Sinus rhythm 65 normal axis no stemi
[2024-05-22 17:49] VITALS: BP 183/90; PULSE 68; RESP 16; TEMP 36.6; O2SAT 98
--- NOTE | 2024-05-22 18:00 | DI.RAD_ITS ---
Exam(s) XR PORTABLE CHEST AP EXAM: XR PORTABLE CHEST AP CLINICAL HISTORY: chest pain. TECHNIQUE: 2D digital imaging was performed. COMPARISON: CR CHEST 2 VIEWS PA,LAT from 10/10/2016 FINDINGS: Single AP portable view. Heart size is upper normal. The mediastinum is not widened. The left lung is clear. There is a horizontally orientated density in the mid-lower right lung which is approximately 5-6 mm thick and either represents atelectasis or linear infiltrate or possibly some fluid in the minor fiss ure. There are no pleural effusions. No pneumothorax. No fracture seen. IMPRESSION: Right lung finding as above which was not previously present on the 2017 images. Appropriate follow- up recommended, including nonportable PA and lateral views when clinically possible. DATA REPOSITORY: RADIATION DOSE DELIVERED:
--- NOTE | 2024-05-22 18:00 | RT.EKG_ITS ---
APPROVED REPORT Exam: Resting ECG Reason for Exam: chest pain Patient Location: E HR:68 bpm ECG Measurements Heart Rate 68 AXIS VT 148 P 57 QRSd 100 QRS 5 QT 385 T 43 QTc 410 Conclusion Sinus rhythm 68 normal axis no stemi
[2024-05-22 18:11] VITALS: RESP 13
[2024-05-22] MEDS: Aspirin 81 MG CHEW 324 MG CH (18:24)
[2024-05-22 18:34] LABS: Abs Immature Grans 0.02 10^3/uL (0.0-0.06); Absolute Basophil Count 0.05 10^3/uL (0.0-0.2); Absolute Eosinophil Count 0.32 10^3/uL (0.0-0.7); Absolute Lymphocyte Count 1.96 10^3/uL (1.2-3.4); Absolute Monocyte Count 0.72 10^3/uL (0.1-0.8); Absolute Neutrophil Count 4.54 10^3/uL (1.2-6.7); Basophils % 0.7 %; Eosinophils % 4.2 %; HCT 36.2 % (40.0-50.0); HGB 12.4 g/dL (13.5-17.5); Immature Grans % 0.3 %; Lymphocytes % 25.8 %; MCH 30.9 pg (27.0-33.0); MCHC 34.3 % (32.0-36.0); MCV 90 fL (80-95); MPV 8.7 fL (8.0-11.0); Monocytes % 9.5 %; Neutrophils % 59.5 %; Platelet Count 240 10^3/uL (130-400); RBC 4.01 10^6/uL (4.36-5.78); RDW 12.6 % (11.8-14.1); RDW-SD 41.7 fL; WBC 7.61 10^3/uL (4.4-10.8)
--- NOTE | 2024-05-22 18:46 | ED.GENADUL_ITS ---
Discharge Plan Disposition Patient Disposition: Home Condition: Stable Discharge Details Clinical Impression: Chest pain, Tick bite, Arthralgia Primary Care Provider: Juan Antonio Mccormick ED Provider: Guerline Castillo Home Meds and New Rx's Prescriptions: New doxycycline hyclate 100 mg capsule 100 mg PO BID 14 Days Qty: 28 0RF No Action sertraline 50 mg tablet 50 mg PO DAILY Qty: 90 3RF sertraline 100 mg tablet See Rx Instructions .ROUTE .COMPLEX Qty: 90 3RF Dose Instruction: take 1 tablet (100mg) by mouth daily Rx Instructions: take 1 tablet (100mg) by mouth daily memantine 10 mg tablet 10 mg PO BID Qty: 180 3RF gabapentin 100 mg capsule 100 mg PO BID Qty: 180 3RF losartan 25 mg tablet 25 mg PO DAILY Qty: 90 3RF mesalamine 1.2 gram tablet,delayed release (DR/EC) 4.8 g PO DAILY Patient Comments: TAKE TWO TABLETS BY MOUTH TWICE A DAY mecobalamin (vitamin B12) [B12 Active] 1,000 mcg tablet,chewable 1,000 mcg PO DAILY tamsulosin 0.4 mg capsule 0.8 mg PO DAILY Qty: 180 3RF hydroxychloroquine [Plaquenil] 200 mg tablet 400 mg PO DAILY Qty: 180 3RF Discharge Instructions Instructions: Chest Pain (DC) Additional Instructions: * Troponin levels and EKG are unremarkable this evening * A repeat Lyme test has been sent but may take several days to result * Given your symptoms and a known tick bite, will start doxycycline. You can continue this until you follow-up with your PCP or get repeat testing resulted * Given your ongoing symptoms, please follow-up with your primary care for reevaluation soon as possible. * Return to the emergency department if you develop severe chest pain that is persistent, or other concerning symptoms. HPI General Date/Time Provider Initiated Documentation: 05/22/24 18:02 . Limitations to Documentation: no limitations . Information obtained by: patient . HPI Narrative: 64-year-old gentleman with past medical history of depression, BPH, hypertension presents for evaluation of chest pain. He reports that he has been having intermittent brief chest pressure for the last week or so. It is not exertional. It resolves spontaneously. No significant associated symptoms. This afternoon he was pressure washing when he developed more severe left-sided pain. This was associated with some shortness of breath. He sat down and rested and the symptoms went away. At this time he is asymptomatic and does not have any chest pain. He reports for the last couple of weeks he has been not feeling well at all and having a lot of joint pain and discomfort. He did see his PCP and had lab work done because his PCP was concerned or suspicious for Lyme disease. The patient reports that he did find an embedded deer tick on his neck. 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 He has not noticed any rash or had any fevers but he has had a fair amount of joint pain. No joint swelling noted Related Data Home Medications ?Medication ?Instructions ?Recorded ?Confirmed sertraline 100 mg tablet See Rx Instructions .Route 03/17/23 05/22/24 .COMPLEX #90 tabs sertraline 50 mg tablet 50 mg PO DAILY #90 tabs 03/17/23 05/22/24 tamsulosin 0.4 mg capsule 0.8 mg (2 x 0.4 mg) PO DAILY #180 06/21/23 05/22/24 caps mesalamine 1.2 gram tablet,delayed 4.8 g PO DAILY 11/10/23 05/22/24 release hydroxychloroquine 200 mg tablet 400 mg (2 x 200 mg) PO DAILY 12/14/23 05/22/24 (Plaquenil) discoid lupus #180 tabs mecobalamin (vitamin B12) 1,000 1,000 mcg PO DAILY 01/04/24 05/22/24 mcg chewable tablet (B12 Active) gabapentin 100 mg capsule 100 mg PO BID #180 caps 04/03/24 05/22/24 losartan 25 mg tablet 25 mg PO DAILY #90 tabs 04/03/24 05/22/24 memantine 10 mg tablet 10 mg PO BID #180 tabs 04/03/24 05/22/24 doxycycline hyclate 100 mg capsule 100 mg PO BID 14 days #28 caps 05/22/24 Previous Rx's ?Medication ?Instructions ?Recorded sertraline 100 mg tablet See Rx Instructions .Route 03/17/23 .COMPLEX #90 tabs sertraline 50 mg tablet 50 mg PO DAILY #90 tabs 03/17/23 tamsulosin 0.4 mg capsule 0.8 mg (2 x 0.4 mg) PO DAILY #180 06/21/23 caps hydroxychloroquine 200 mg tablet 400 mg (2 x 200 mg) PO DAILY 12/14/23 (Plaquenil) discoid lupus #180 tabs gabapentin 100 mg capsule 100 mg PO BID #180 caps 04/03/24 losartan 25 mg tablet 25 mg PO DAILY #90 tabs 04/03/24 memantine 10 mg tablet 10 mg PO BID #180 tabs 04/03/24 doxycycline hyclate 100 mg capsule 100 mg PO BID 14 days #28 caps 05/22/24 Allergies Allergy/AdvReac Type Severity Reaction Status Date / Time Tetanus Vaccines and Toxoid Allergy Severe COLD Verified 05/22/24 17:57 (Tetanus Vaccines \T\ Toxoid) SWEATS naproxen AdvReac Unknown WORSENING Verified 05/22/24 17:57 ULCERATIVE COLITIS zolpidem AdvReac Unknown MUSCLE Verified 05/22/24 17:57 TWITCH lisinopril AdvReac Intermediate DAYO cough Uncoded 05/22/24 17:57 General Stated Complaint: Chest Pain TEAGAN: 2 Exam Narrative Exam Narrative: Review of Systems: All systems reviewed & are unremarkable except as noted in HPI and below Well-developed, no acute distress NCAT PERRL, normal conjunctiva RRR no murmur or rub Unlabored respiratory effort clear bilaterally Nondistended abdomen soft nontender Extremities w/o deformity, no cyanosis, no edema No appreciable joint swelling No rashes or lesions. no focal neurologic deficits Appropriate mood and affect Course Vital Signs Vital signs: Vital Signs Temperature 36.6 C 05/22/24 17:49 Pulse 68 05/22/24 17:49 Respiratory Rate 16 05/22/24 17:49 Blood Pressure 183/90 H 05/22/24 17:49 Pulse Oximetry 98 05/22/24 17:49 Temperature 36.6 C 05/22/24 17:49 Pulse 68 05/22/24 17:49 Respiratory Rate 13 05/22/24 18:11 Respiratory Effort Normal 05/22/24 18:11 Respiratory Depth Normal 05/22/24 18:11 Respiratory Pattern Normal 05/22/24 18:11 Blood Pressure 183/90 H 05/22/24 17:49 Pulse Oximetry 98 05/22/24 17:49 Pain Level 4 05/22/24 17:49 Lab/Test Results Lab/Test Results: Laboratory Tests Range/Units 05/22/24 18:30 WBC (4.4-10.8) 10^3/uL 7.61 RBC (4.36-5.78) 10^6/uL 4.01 L Hgb (13.5-17.5) g/dL 12.4 L Hct (40.0-50.0) % 36.2 L MCV (80-95) fL 90 MCH (27.0-33.0) pg 30.9 MCHC (32.0-36.0) % 34.3 RDW (11.8-14.1) % 12.6 Plt Count (130-400) 10^3/uL 240 MPV (8.0-11.0) fL 8.7 Immature Gran % % 0.3 Neutrophils % % 59.5 Lymphocytes % % 25.8 Monocytes % % 9.5 Eosinophils % % 4.2 Basophils % % 0.7 Nucleated RBC % (0.0-0.3) % 0.0 Absolute Neutrophils (1.2-6.7) 10^3/uL 4.54 Absolute Lymphocytes (1.2-3.4) 10^3/uL 1.96 Absolute Monocytes (0.1-0.8) 10^3/uL 0.72 Absolute Eosinophils (0.0-0.7) 10^3/uL 0.32 Absolute Basophils (0.0-0.2) 10^3/uL 0.05 Medical Decision Making Emergent evaluation of chest pain. Symptoms this afternoon are concerning given the patient's age and history of hypertension. EKG reviewed and independently interpreted: Sinus 65 normal axis, no acute ST segment changes. The patient has not had any provocative stress testing or other evaluation. His symptoms over the last week or so have been concerning for possible unstable angina, Lyme disease or other infectious etiology. Heart Score 3. Risk facotrs include on HTN. Plan for cardiac monitoring, lab work including tick panel and serial troponins. 2100 Lab work reviewed. The patient is noted to have a slight decrease in his hemoglobin from last week. Typically he has a baseline of around 14 but today is noted to be 12.4. He denies any known melena or bright red blood per rectum, but states that he does have ulcerative colitis and that his stools are always messed up. He reports that he has been scoped twice since April. And is followed closely by GI. He does not require a blood transfusion given this level of hemoglobin, but I did advise that he should continue to monitor it closely and follow-up with his PCP. If he does notice any blood in his stool, he should return for reevaluation. His electrolytes demonstrate some mild dehydration, given that there is an IV fluid shortage, I have not given IV fluids, but have encouraged increased oral intake. He does not have an elevated uric acid. His LDH is slightly elevated. Serial troponins are flat and not significantly elevated. Based on heart score, patient can be discharged home. He feels comfortable with this plan. Given that he has a known tick bite and has been having some arthralgias, I will empirically start doxycycline. Will continue this for at least 2 weeks but recommend that he follow-up with his PCP for reevaluation and discussion regarding continuation of this based on his symptoms and additional laboratory testing. Return precautions advised. Quality:[facility] Health Related Social Needs: No Data to Display PFSH All Active Problems (Updated 05/22/24 @ 20:50 by Guerline Castillo MD) Arthralgia (Acute) Tick bite (Acute) Chest pain (Acute) Lower urinary tract symptoms (LUTS) (Acute) Mild cognitive impairment (Acute) Low vitamin B12 level (Acute) Lumbar back pain (Acute) Memory loss (Acute) Fatigue (Acute) Tick bite (Acute) Greater trochanteric bursitis of left hip (Acute) Acute right hip pain (Acute) DEPO 06/10/22 Essential hypertension (Acute) Abdominal pain (Acute) Polydipsia (Acute) BPH w urinary obs/LUTS (Acute) Ulcerative colitis (Acute) Dr Menezes at [facility]. Colonoscopy 11/18 normal [facility] 07/22 ?IBS Tubular adenoma of colon (Acute) Sexual function problem (Acute) Irritable bowel syndrome without diarrhea (Acute 12/07/16) normal colonoscopy 07/22 [facility]. Previously thought to have ulcerative colitis but not evidence of this. [facility] colonoscopy 08/24 No colitis. 2 polyps Insomnia (Acute 12/07/16) History of tobacco use (Acute) chews tobacco Heart murmur (Acute) Diverticulosis of colon without diverticulitis (Acute) Discoid lupus erythematosus (Acute) Dermatitis (Acute) Depression (Acute 12/07/16) Quit drinking in Aug 27 Carpal tunnel syndrome (Acute 12/10/13) Medical History Spinal stenosis surgery 2006 Surgical History History of spinal surgery Status post appendectomy Status post rotator cuff repair (08/04/15) spinal repair (~2006) Rotator Cuff Repair 08/04/15 [facility];RIGHT Colonoscopy - [facility] (~05/2023) polups Family History Mother Diabetes Cancer Ovarian Father , 48 Myocardial infarction Heart disease Sister No problems noted. Sister No problems noted. Brother No problems noted. Son Alcohol use disorder Daughter No problems noted. Daughter No problems noted. Maternal Grandfather Diabetes Paternal Grandfather Diabetes Maternal Grandmother No problems noted. Paternal Grandmother Diabetes Social History Smoking/Tobacco Use Status: Current every day Tobacco Type: smokeless tobacco Tobacco: How many years used: 40 Smokeless tobacco user: chewing tobacco and snuff Second Hand Exposure: Yes Smoking risk assessment performed?: Yes Alcohol Intake: former Year quit: 2019 Counseling given: No Drug use: Rarely Substance use type: marijuana Adopted: No Caregiver/Support person: No Household members: children Housing: house Number of Children: 3 number of grandchildren: 1 Communication Needs: Hard of Hearing and Corrective Lenses Education Level: high school Do you need help understanding health information?: Often current occupation: Self Employed Pets and animals: Yes Pets and animals: dog(s) Sexually active: No Do you think of yourself as: straight/heterosexual Current gender identity: male What is your relationship status?: How often do you talk on the phone with friends or family?: three or more times per week How often do you get together with friends or relatives?: once per week How often do you attend synagogue or mandaen services?: 1-3 times per year Do you belong to any clubs or organized social groups?: no Panel score (0-1 are the most socially isolated patients): 1 What type of physical activity do you participate in: other Details: Work Frequency: daily Lexi/Restorationist: Non religion Special lexi needs: No Seatbelt use: always Helmet use: Yes Helmet use: always Drive intox or ride w/intox nascar driver: No Firearms in home: No Do you feel safe at home: Yes Do you feel safe in your relationship?: Yes Victim of physical abuse: No Victim of emotional abuse: No Victim of sexual abuse: No Would you like helpful sources: No Additional Social history: lives alone
[2024-05-22 18:47] LABS: PTT Activated 25.6 sec (23.6-32.8); Prothrombin Time 9.9 sec (9.1-11.1)
[2024-05-22 18:56] LABS: ALT 47 U/L (16-63); AST 32 U/L (15-37); Albumin 3.4 g/dL (3.4-5.0); Alkaline Phosphatase 59 U/L (46-116); Anion Gap 11.5 mmol/L (3-11); BUN 19 mg/dL (7-18); Bilirubin, Total 0.29 mg/dL (0.2-1.0); CO2 24.5 mmol/L (21.0-32.0); CREATININE 1.2 mg/dL (0.70-1.30); Calcium 8.4 mg/dL (8.5-10.1); Chloride 111 mmol/L (98-107); Estimated GFR 67.53 (mL/min/1.73m2); Glucose 94 mg/dL (74-106); LDH 253 U/L (85-227); Magnesium 2.1 mg/dL (1.8-2.4); NT-proBNP 398 pg/mL (<300); Potassium 3.6 mmol/L (3.5-5.1); Sodium 147 mmol/L (136-145); Total Protein 6.5 g/dL (6.4-8.2); Troponin I 7 ng/L (<or=76); Uric Acid 6.9 mg/dL (3.5-7.2)
--- NOTE | 2024-05-22 19:00 | DI.RAD_ITS ---
Exam(s) XR CHEST 2V PA LATERAL EXAM: XR CHEST 2V PA LATERAL CLINICAL HISTORY: ABNORMAL CXR TECHNIQUE: 2D digital imaging was performed of the chest. Two images were obtained. PA and lateral views were obtained. COMPARISON: CR CHEST 2 VIEWS PA,LAT from 10/10/2016 CR XR PORTABLE CHEST AP from 05/22/2024 FINDINGS: MEDIASTINUM: Normal. HEART: Normal. PULMONARY VASCULATURE: Normal. LUNGS: No focal consolidation. PLEURAL SPACE: No pleural effusion or pneumothorax. BONE:Within normal limits for the patient's age. OTHER FINDINGS:Normal. IMPRESSION: No acute pulmonary findings. DATA REPOSITORY: RADIATION DOSE DELIVERED:
[2024-05-22 20:04] LABS: Troponin I 10 ng/L (<or=76)
--- NOTE | 2024-05-22 20:48 | DI.VRAD_ITS ---
PROCEDURE INFORMATION: Exam: XR Chest Exam date and time: 05/22/2024 19:45 Age: 64 years old Clinical indication: Other: Abnormal cxr TECHNIQUE: Imaging protocol: Radiologic exam of the chest. Views: 2 views. COMPARISON: CR XR PORTABLE CHEST AP 05/22/2024 18:41 FINDINGS: Lungs: Interstitial and vascular crowding appearing technique related. No airspace consolidation. Pleural spaces: No pleural effusion. No pneumothorax. Heart/Mediastinum: No cardiomegaly. Bones/joints: Evidence of right rotator cuff repair. No displaced fracture. IMPRESSION: No acute cardiopulmonary pathology. Dictated and Authenticated by: Amaris Cunningham MD. Ordering:[facility] Anna Radford MD
[2024-05-22] MEDS: Doxycycline Hyclate 100 MG CAP PO (21:05)
[2024-05-22 21:18] VITALS: BP 185/78; PULSE 60; RESP 15; TEMP 36.7; O2SAT 97
[2024-05-24 11:14] LABS: Lyme Ab w Rflx to Lyme Confirm Negative (Negative)
== END 2024-05-22 21:18 | disposition home or self-care (01) ==
PROVIDERS: Emergency Provider Emergency Medicine; PCP Nurse Practitioner Family
DX: S10.86XA Insect bite of other specified part of neck, initial encounter (principal); R07.9 Chest pain, unspecified; M25.50 Pain in unspecified joint; W57.XXXA Bitten or stung by nonvenomous insect and other nonvenomous arthropods, initial encounter
CPT/HCPCS: 36415; 80053; 93005; 99284; 71045; 71046; 83615; 83735; 83880; 84484; 84550; 85025; 85610; 85730; 86618; 93010; 99283

== ENCOUNTER 2024-06-25 10:50 | Outpatient (CLI) | payer OTHER, SELFPAY ==
--- NOTE | 2024-06-25 10:45 | DI.RAD_ITS ---
Exam(s) XR SHOULDER LT COMPLETE 2+V EXAM: XR SHOULDER LT COMPLETE 2+V CLINICAL HISTORY: worsening shoulder pain, M25.519. Failing PT. TECHNIQUE: 2D digital imaging was performed. Three views. COMPARISON: None FINDINGS: BONES: No acute fracture is present. No bony destructive lesion is seen. JOINTS: No dislocation present. Glenohumeral joint space is maintained. There is mild spurring at t he margin of the glenoid. Moderate spurring at the AC joint. Mild spurring at the undersurface of t he acromion. SOFT TISSUE: Normal. IMPRESSION: Mild degenerative changes. DATA REPOSITORY: RADIATION DOSE DELIVERED:
--- NOTE | 2024-06-25 10:45 | DI.RAD_ITS ---
Exam(s) XR SHOULDER RT COMPLETE 2+V EXAM: XR SHOULDER RT COMPLETE 2+V CLINICAL HISTORY: worsening shoulder pain, M25.519. Failing PT. TECHNIQUE: 2D digital imaging was performed. Five views. COMPARISON: CR RIGHT SHOULDER COMPLETE from 04/11/2013 FINDINGS: BONES: No acute fracture is present. No bony destructive lesion is seen. Suture anchors in the humer al head. Spurring at the greater tuberosity. JOINTS: No dislocation present. Postsurgical changes at the AC joint. Narrowing of the acromial hum eral distance consistent with chronic rotator cuff tear. Mild narrowing of the glenohumeral joint. Mild to moderate spurring at the glenoid. SOFT TISSUE: Normal. IMPRESSION: Postsurgical changes. [id number] degenerative changes. Evidence of chronic rotator cuff tear. DATA REPOSITORY: RADIATION DOSE DELIVERED:
== END 2024-06-25 11:10 ==
LOC: DI 10:51
PROVIDERS: PCP Nurse Practitioner Family; Visit Provider Nurse Practitioner Family
DX: M19.012 Primary osteoarthritis, left shoulder (principal); M19.011 Primary osteoarthritis, right shoulder; Z98.890 Other specified postprocedural states
CPT/HCPCS: 73030

== ENCOUNTER 2024-07-15 03:02 | Outpatient (CLI) | payer OTHER, SELFPAY ==
[2024-07-15] MEDS: Inhaler, Assist Device 1 EACH MC (09:04)
[2024-07-15] MEDS: Levalbuterol HFA 15 GM INH 4 PUFF IH (09:04)
--- NOTE | 2024-07-20 12:03 | W.PFT ---
Date of service: 07/15/24 Time of Service: 08:01 Pulmonary Function Test Result Indications: Dyspnea Interpretation Spirometry: No airflow limitation. No bronchodilator response. Lung Volumes: Normal lung volumes Diffusion Capacity: Normal diffusion Airway Pressure: Normal airways resistance Note: Normal pulmonary function testing Clinical Correlation therefore is recommended.
== END 2024-07-15 03:03 | disposition home or self-care (01) ==
LOC: RT 03:02
PROVIDERS: PCP Nurse Practitioner Family; Visit Provider Student in an Organized Health Care Education/Training Program
DX: R06.02 Shortness of breath (principal)
CPT/HCPCS: 94060; 94726; 94729

== ENCOUNTER 2024-08-05 13:33 | Outpatient (CLI) | payer OTHER, SELFPAY ==
[2024-08-05 12:24] LABS: Abs Immature Grans 0.01 10^3/uL (0.0-0.06); Absolute Basophil Count 0.06 10^3/uL (0.0-0.2); Absolute Eosinophil Count 0.09 10^3/uL (0.0-0.7); Absolute Lymphocyte Count 2.12 10^3/uL (1.2-3.4); Absolute Monocyte Count 0.63 10^3/uL (0.1-0.8); Basophils % 0.8 %; Eosinophils % 1.2 %; HCT 42.7 % (40.0-50.0); HGB 14.4 g/dL (13.5-17.5); Immature Grans % 0.1 %; MCH 29.4 pg (27.0-33.0); MCHC 33.7 % (32.0-36.0); MCV 87 fL (80-95); MPV 8.8 fL (8.0-11.0); Monocytes % 8.6 %; Neutrophils % 60.3 %; Platelet Count 241 10^3/uL (130-400); RDW 12.8 % (11.8-14.1); RDW-SD 40.7 fL; WBC 7.31 10^3/uL (4.4-10.8)
[2024-08-05 12:29] LABS: ESR 7 mm/hr (0-20)
[2024-08-05 13:00] LABS: ALT 59 U/L (16-63); AST 31 U/L (15-37); Albumin 4.1 g/dL (3.4-5.0); Alkaline Phosphatase 64 U/L (46-116); Anion Gap 10.1 mmol/L (3-11); BUN 18 mg/dL (7-18); Bilirubin, Total 0.44 mg/dL (0.2-1.0); C-Reactive Protein < 0.50 mg/dL (<or=0.5); CO2 25.9 mmol/L (21.0-32.0); CREATININE 0.9 mg/dL (0.70-1.30); Calcium 8.1 mg/dL (8.5-10.1); Chloride 108 mmol/L (98-107); Estimated GFR 95.37 (mL/min/1.73m2); Glucose 80 mg/dL (74-106); Potassium 3.6 mmol/L (3.5-5.1); Sodium 144 mmol/L (136-145); Total Protein 7.2 g/dL (6.4-8.2)
== END 2024-08-05 13:34 | disposition home or self-care (01) ==
LOC: LBO 13:34
PROVIDERS: PCP Nurse Practitioner Family; Visit Provider Internal Medicine Gastroenterology
DX: K52.9 Noninfective gastroenteritis and colitis, unspecified (principal); R10.84 Generalized abdominal pain; R19.7 Diarrhea, unspecified
CPT/HCPCS: 36415; 80053; 85652; 85025; 86140

== ENCOUNTER 2024-08-06 14:51 | Outpatient (REF) | payer OTHER, SELFPAY ==
[2024-08-09 16:27] LABS: Calprotectin <50.0 mcg/g
== END 2024-08-06 14:52 | disposition home or self-care (01) ==
LOC: LBN 14:51
PROVIDERS: PCP Nurse Practitioner Family; Visit Provider Internal Medicine Gastroenterology
DX: K52.9 Noninfective gastroenteritis and colitis, unspecified (principal)
CPT/HCPCS: 83993

== ENCOUNTER 2024-09-02 18:00 | Outpatient (REF) | payer OTHER, SELFPAY | END 2024-09-02 18:01 | disposition home or self-care (01) | LOC: LBN 18:00 | PROVIDERS: PCP Nurse Practitioner Family; Visit Provider Nurse Practitioner Family | DX: J02.9 Acute pharyngitis, unspecified (principal) | CPT/HCPCS: 87070 ==

== ENCOUNTER 2024-09-11 00:20 | Outpatient (CLI) | payer OTHER, SELFPAY ==
--- NOTE | 2024-09-11 06:15 | DI.MRI_ITS ---
Exam(s) MR UPPER JOINT RT WO EXAM: MR UPPER JOINT RT WO CLINICAL HISTORY: R SHOULDER PAIN,m12.811,rotator cuff arthropathy. TECHNIQUE: Multiplanar multisequence MRI was performed. COMPARISON: Plain films 25 June 2024 FINDINGS: BONES: There is no fracture or contusion pattern. There are metallic anchors in the humeral head wh ich creates artifact. There are degenerative signal changes in the and subchondral cysts in the estuardo ral head. JOINTS:The acromioclavicular joint shows significant inferior spurring. There is also spurring at th e undersurface of the acromion. The humeral head is high riding and appears to articulate with the u ndersurface of the acromion, consistent with chronic supraspinatus tear. The glenohumeral joint is normal. TENDONS: Supraspinatus: Full-thickness tear with retraction to the level of the AC joint. Infraspinatus: Unremarkable. Subscapularis: Unremarkable. Teres Minor: Unremarkable. Biceps and [place]: Unremarkable. MUSCLES: Moderate supraspinatus muscle atrophy. GLENOID LABRUM: Unremarkable on this noncontrast examination. SOFT TISSUES: Unremarkable. BURSAE: Subacromial and subdeltoid bursae show small amount of fluid. Small amount of fluid in the subcoracoid bursa.. IMPRESSION: Some full-thickness tear with retraction of the supraspinatus tendon. Moderate supraspinatus muscle atrophy. DATA REPOSITORY:
== END 2024-09-11 00:40 ==
LOC: DI 00:20
PROVIDERS: PCP Nurse Practitioner Family; Visit Provider Student in an Organized Health Care Education/Training Program
DX: M12.811 Other specific arthropathies, not elsewhere classified, right shoulder (principal)
CPT/HCPCS: 73221

== ENCOUNTER 2024-10-14 15:53 | Outpatient (CLI) | payer OTHER, SELFPAY ==
--- NOTE | 2024-10-14 15:30 | DI.RAD_ITS ---
Exam(s) XR HIP RT COMPLETE AP PELVIS EXAM: XR HIP RT COMPLETE AP PELVIS CLINICAL HISTORY: RIGHT HIP PAIN. TECHNIQUE: 2D digital imaging was performed. COMPARISON: CR XR HIP LT COMPLETE AP PELVIS from 06/10/2022 FINDINGS: Two views No evidence of acute pelvic nor hip fracture. No obvious hip joint space narrowing. Hips appear rad iographically unchanged from June 2022. Again noted is an osteophytic density off the superolate ral aspect of the right hip acetabulum. Probably represents ununited apophysis IMPRESSION: No acute osseous findings in the hips. Radiographically unchanged from 06/10/2022. DATA REPOSITORY: RADIATION DOSE DELIVERED:
--- NOTE | 2024-10-14 16:01 | DI.RAD_ITS ---
Exam(s) XR KNEE RT 4V AP,LAT,MART,PAT EXAM: XR KNEE RT 4V AP,LAT,MART,PAT CLINICAL HISTORY: RIGHT KNEE PAIN. TECHNIQUE: 2D digital imaging was performed. COMPARISON: No exams were available for comparison FINDINGS: Four views No evidence of fracture nor obvious joint effusion. Bone density is normal. No osseous lesions. There is moderate narrowing of the medial aspect of the patellofemoral compartment. There is no narr owing of the medial lateral compartments but there is marginal osteophyte seen on the outer aspect of the lateral femoral condyle. IMPRESSION: Some degenerative changes as described above. No obvious joint effusion DATA REPOSITORY: RADIATION DOSE DELIVERED:
== END 2024-10-14 15:54 | disposition home or self-care (01) ==
LOC: DIORS 15:53
PROVIDERS: PCP Nurse Practitioner Family; Visit Provider Physician Assistant
DX: M25.561 Pain in right knee (principal); M25.551 Pain in right hip
CPT/HCPCS: 73502; 73564

== ENCOUNTER 2024-12-27 19:05 | Outpatient (CLI) | payer OTHER, SELFPAY ==
--- NOTE | 2024-12-27 17:07 | DI.RAD_ITS ---
Exam(s) XR SHOULDER LT COMPLETE 2+V EXAM: XR SHOULDER LT COMPLETE 2+V CLINICAL HISTORY: M25.512 Eval Pathology, Pain in left shoulder. TECHNIQUE: 2D digital imaging was performed of the left shoulder. Five images were obtained. AP, G rashey, Y-view and axillary views were obtained. COMPARISON: CR RIGHT SHOULDER COMPLETE from 04/11/2013 CR XR SHOULDER LT COMPLETE 2+V from 06/25/2024 FINDINGS: BONES: No acute fracture is present. No bony destructive lesion is seen. JOINTS: No dislocation present. There are degenerative changes seen at the acromioclavicular joint. The glenohumeral joint is well maintained. There is mild offset of the clavicle relative to the acro mion at the acromioclavicular joint appreciated on the axillary view. This is unchanged. SOFT TISSUE: Normal. IMPRESSION: 1. No acute fracture or dislocation. 2. Degenerative changes of the AC joint. DATA REPOSITORY: RADIATION DOSE DELIVERED:
--- NOTE | 2024-12-27 17:33 | DI.VRAD_ITS ---
PROCEDURE INFORMATION: Exam: XR Left Shoulder Exam date and time: 12/27/2024 4:58 PM Age: 64 years old Clinical indication: Other: Eval pathology, pain; Shoulder; Left TECHNIQUE: Imaging protocol: Radiologic exam of the left shoulder. Views: 2 or more views. COMPARISON: CR XR SHOULDER LT COMPLETE 2+V 06/25/2024 2:01 PM FINDINGS: Bones/joints: There is moderate AC joint arthrosis. The glenohumeral joint is maintained without degenerative change. The humeral head demonstrates normal contour and density. The subacromial space is maintained without focal calcification. Osseous mineralization is normal. There are no inflammatory osseous erosive changes. There are no acute displaced fractures. The glenohumeral joint is well aligned. There is approximately 1.2 cm posterior subluxation of the distal aspect of the left clavicle relative to the acromion. Soft tissues: Normal. IMPRESSION: 1. Moderate left AC joint arthrosis. 2. Posterior subluxation of the distal aspect of the left clavicle relative the acromion consistent with history of mild AC joint separation, of uncertain chronicity. Dictated and Authenticated by: Patrick Rosen MD. Orderin Howard Ha MD
== END 2024-12-27 19:25 ==
LOC: DI 19:05
PROVIDERS: PCP Nurse Practitioner Family; Visit Provider Nurse Practitioner Family
DX: M25.512 Pain in left shoulder (principal)
CPT/HCPCS: 73030

== ENCOUNTER 2025-03-05 02:51 | Outpatient (CLI) | payer OTHER, SELFPAY ==
--- NOTE | 2025-03-05 06:30 | DI.MRI_ITS ---
Exam(s) MR UPPER JOINT LT WO EXAM: MR UPPER JOINT LT WO CLINICAL HISTORY: L SHOULDER PAIN, osteoarthritis, M19.012. TECHNIQUE: Multiplanar multisequence MRI was performed. COMPARISON: Plain films 27 Dec 2024 FINDINGS: BONES: There is no fracture or contusion pattern. Tiny degenerative cysts in the humeral head. JOINTS:The acromioclavicular joint show significant inferior spurring. There appears to be impingement on the distal supraspinatus tendon junction. The glenohumeral joint shows a small amount fluid. TENDONS: Supraspinatus: Thickening high signal consistent with tendinitis.. Focal linear tear in the anterior portion which may be full-thickness tear. No separation fibers.. Infraspinatus: Unremarkable. Subscapularis: Unremarkable. Teres Minor: Unremarkable. Biceps and [place]: Unremarkable. MUSCLES: Unremarkable. GLENOID LABRUM: The labrum is outlined by small amount of fluid. There is abnormal linear signal in the anterior superior portions consistent with tear. No displaced fragments. SOFT TISSUES: Unremarkable. BURSAE: Subacromial and subdeltoid bursae shows a small amount of fluid. There is also fluid in the sub coracoid bursa.. IMPRESSION: Thickening of the supraspinatus tendon with superimposed focal tear anteriorly. Small joint effusion. Anterosuperior labral tear. Spurring at the AC joint with impingement on the distal supraspinatus muscle tendon junction. DATA REPOSITORY:
== END 2025-03-05 03:11 ==
LOC: DI 02:51
PROVIDERS: PCP Nurse Practitioner Family; Visit Provider Student in an Organized Health Care Education/Training Program
DX: M19.012 Primary osteoarthritis, left shoulder (principal)
CPT/HCPCS: 73221

== ENCOUNTER 2025-04-17 10:41 | Outpatient (CLI) | payer MEDICARE, SELFPAY ==
[2025-04-17 17:06] LABS: Hemoglobin A1C 5.7 % (<5.7)
[2025-04-17 17:40] LABS: Anion Gap 8.6 mmol/L (3-11); BUN 35 mg/dL (7-18); CO2 25.4 mmol/L (21.0-32.0); Calcium 9.3 mg/dL (8.5-10.1); Calculated LDL 105 mg/dL (<100); Chloride 109 mmol/L (98-107); Cholesterol 168 mg/dL (<200); Estimated GFR 83.52 (mL/min/1.73m2); Glucose 118 mg/dL (74-106); HDL Cholesterol 48 mg/dL (>or=40); Potassium 4.6 mmol/L (3.5-5.1); Sodium 143 mmol/L (136-145); Triglyceride 76 mg/dL (<150)
== END 2025-04-17 10:42 | disposition home or self-care (01) ==
PROVIDERS: PCP Nurse Practitioner Family; Referring Provider Nurse Practitioner Family; Visit Provider Nurse Practitioner Family
DX: Z13.1 Encounter for screening for diabetes mellitus (principal); I10 Essential (primary) hypertension; Z13.6 Encounter for screening for cardiovascular disorders
CPT/HCPCS: 36415; 80048; 80061; 83036

== ENCOUNTER → 2025-04-23 09:11 | Outpatient (BNVA) | payer MEDICARE, OTHER, SELFPAY | PROVIDERS: PCP Nurse Practitioner Family; Referring Provider Nurse Practitioner Family; Visit Provider Physician Assistant | DX: M70.62 Trochanteric bursitis, left hip (principal); M70.61 Trochanteric bursitis, right hip | CPT/HCPCS: 20610; J1010 ==

== ENCOUNTER 2025-05-30 09:10 | Day surgery (SDC) | payer MEDICARE, OTHER, SELFPAY ==
[2025-05-30] VITALS (16 sets, daily range): BP systolic 111–159; BP diastolic 44–81; PULSE 46–67; RESP 13–20; TEMP 36.5–36.8; O2SAT 95–100; BMI 29.5
--- NOTE | 2025-05-30 07:14 | PDOC.DSDIS_ITS ---
Date of service: 05/30/25 Discharge Plan Disposition Patient Disposition: Home Condition: Stable Discharge Details Attending Provider: Román Montaño Primary Care Provider: Juan Antonio Mccormick Home Meds and New Rx's Prescriptions: New oxycodone 5 mg tablet 5 - 10 mg PO .q4-6h MDD 30 mg PRN (Reason: severe pain) Qty: 18 0RF Continued mirabegron [Myrbetriq] 50 mg tablet extended release 24 hr 50 mg PO DAILY spironolactone 100 mg tablet 100 mg PO DAILY Qty: 14 0RF losartan 100 mg tablet 100 mg PO DAILY Qty: 90 3RF hydroxychloroquine [Plaquenil] 200 mg tablet 400 mg PO DAILY Qty: 180 3RF gabapentin 100 mg capsule 100 mg PO BID Qty: 180 3RF memantine 10 mg tablet 10 mg PO BID Qty: 180 3RF mesalamine 1.2 gram tablet,delayed release (DR/EC) 2.4 g PO BID Qty: 360 3RF oxybutynin chloride 5 mg tablet extended release 24hr 5 mg PO DAILY Qty: 30 0RF sertraline 50 mg tablet 50 mg PO DAILY Qty: 90 3RF sildenafil [Viagra] 100 mg tablet 100 mg PO DAILY PRN (Reason: sexual activity) Qty: 24 4RF tamsulosin 0.4 mg capsule 0.8 mg PO DAILY omeprazole 20 mg capsule,delayed release(DR/EC) 20 mg DAILY docusate sodium [Dulcolax Stool Softener (dss)] 100 mg capsule 100 mg PO DAILY Discontinued tramadol 50 mg tablet 50 mg PO DAILY Qty: 56 0RF Discharge Instructions Additional Instructions: Surgery: Left shoulder arthroscopy with rotator cuff repair (supraspinatus), biceps tenodesis, extensive debridement, and subacromial decompression 05/30/25 Activity: For 6 weeks, you should keep your arm at your side in a neutral position at all times except for physical therapy. Do not try to lift or raise your arm using your own muscles. You should use the sling whenever you are out of the house. At home it is best to remove the sling and rest the arm on a pillow at your side or support the operative side with your other hand. You may allow the arm to dangle at your side. A physical therapy prescription will be sent electronically to begin in about 3 weeks. Standard protocol Prescriptions: Oxycodone 5 mg take 1-2 every 4-6 hours as needed for severe pain You may use [id number] Tylenol (acetaminophen) and/or ibuprofen as needed for mild-moderate pain. These pain medications may be taken all at once or in different combinations as needed. Also, recommend Colace (docusate) as a stool softener as surgery and pain medicine cause constipation. You may try [id number] diphenhydramine (Benadryl) 25-50 mg nightly as a sleep aid Dressings: Remove shoulder bandage after 3 days. Leave the sticky Steri-Strips in place until they fall off or remove them after you shower. Cover the incisions with Band-Aids or leave them open to air. You may shower after 5 days. Follow-up: 10-[address] Montaño You may take off the leg compression stockings this evening at home. You may also leave them on a few days longer if you have a history of leg swelling or edema. Let us know right away if you develop any redness, drainage, fevers, chest pain, or trouble breathing. Do not drink alcohol or drive for at least 24 hours after anesthesia. Please call the office during business hours with any questions or concerns. Stand Alone Forms: Anesthesia Discharge Inst., Castro.Nerve Block Instructions, Yasmin Yin ([facility]U) Referrals: Román Montaño MD [ [facility] STAFF PHYSICIAN, Orthopaedic Surgical] - 06/10/25 10:00 am Discharge Orders Discharge Orders: Discharge Order (Routine); Ordered 05/30/25 Ordered By: Tomasa Richards DS: Diagnosis Discharge Diagnosis (1) Left rotator cuff tear: Status: Acute (2) SLAP lesion of left shoulder: Status: Acute
--- NOTE | 2025-05-30 07:14 | ROE_ITS ---
Operative Note Operative Note PRE-OP DIAGNOSIS: Left: 1. Rotator cuff tear 2. SLAP tear 3. Bursitis POST-OP DIAGNOSIS: same PROCEDURE: Left: 1. Rotator cuff repair, CPT# 77930. This involved repair of the supraspinatus using anchors and sutures to reattach the rotator cuff back to the footprint of the greater tuberosity. 2. Arthroscopic biceps tenodesis, CPT# 76046. This involved arthroscopically suturing and reattaching the long head of the biceps tendon to the proximal humerus at the superior margin of the bicipital groove with a screw at the correct tension. 3. Extensive debridement, CPT# 06911. This involved using arthroscopic hand instruments, power instruments, and radiofrequency instruments to release the long head of the biceps tendon and debride areas of labral tearing, synovitis[, and chondromalacia about the biceps groove] within the glenohumeral joint anteriorly, superiorly and posteriorly. 4. Subacromial decompression with partial acromioplasty, CPT# 65407. This involved using arthroscopic power instruments and a radiofrequency wand to complete a bursectomy and smooth the undersurface of the acromion. The pediatric medical assistant was medically required in order to help assist in techniques above, which require positioning the arm, holding the arthroscope, and manipulating multiple instruments and sutures at the same time. This cannot be done without the help of an experienced pediatric medical assistant. SURGEON: Román Montaño PROFESSOR OF BUSINESS: Tomasa Richards ANESTHESIA TYPE: Local By Surgeon, General LMA/ETT and Primary Nerve Block Refer to Anesthesia Record ESTIMATED BLOOD LOSS: 10 PATHOLOGY: none sent COMPLICATIONS: None Patient was transported to: PACU Patient's condition: stable Implants: Arthrex: 4.75mm SwiveLocks x 1 Indications: The patient was diagnosed with the above conditions and appropriately indicated for surgical intervention. Please see complete medical record for details. Findings: Exam under anesthesia: Mostly full ROM, no instability Glenohumeral joint: Significant synovitis and capsulitis, intact subscapularis, SLAP tear involving partial tearing of the biceps near the anchor as well as unstable biceps anchor superior labrum. Moderate central glenohumeral chondromalacia with more mild diffuse chondromalacia. Anterior and posterior labral degenerative fraying tearing. Full-thickness chronic?appearing anterior somewhat medial trans tendinous supraspinatus defect. Subacromial space: Moderately significant bursitis, hemorrhagic injection throughout the rotator cuff. Focal defect anterior medial supraspinatus with frayed abnormal tissue margins. Procedure Description: In the operating room, general anesthesia was induced. Bilateral shoulders were examined. The patient was positioned in the beachchair position. All bony prominences were well-padded. Preoperative antibiotics were administered. The shoulder was prepped and draped in the usual sterile fashion. The correct patient, procedure, and side of the procedure were all verified prior to incision. Starting through the posterior portal a standard complete diagnostic arthroscopy was performed of the glenohumeral joint including inspection of the long head of the biceps, anterior and superior labrum, subscapularis tendon, supraspinatus and infraspinatus tendons, and axillary recess. The glenoid and humeral head cartilage as well as the posterior labrum were inspected from an anterior viewing portal. Significant findings and interventions noted above including debridement of some irregular cartilage from the chondromalacia, smoothing and removing labral fraying tearing and anterior posterior synovitis and capsulitis. Through the full-thickness rotator cuff tear, a superior anterior lateral portal was made into the subacromial space. The arthroscope was redirected into the subacromial space and the rotator cuff examined from above. A lateral 50 yard line lateral portal was created. A combination of power instruments and a radiofrequency ablator were used to debride bursitis anteriorly, posteriorly, and laterally as well as expose and smooth bone spurring on the undersurface of the acromion working all the way to the distal clavicle. The coracoacromial ligament was partially released. The bursectomy was completed viewing laterally and working from posteriorly and the rotator cuff was thoroughly inspected with findings noted above. The arthroscope was redirected into the glenohumeral joint. An all-arthroscopic suprapectoral biceps tenodesis was performed through the full-thickness rotator cuff tear using the superior anterior lateral portal using a Loop N Tack method with a SutureTape FiberLink cinched around and through the tendon. The biceps was tenotomized from the labrum and fixated and withdrawn to the appropriate level of the bicipital groove for later repair with the rotator cuff. Back in the subacromial space, a knotless 4.75 mm anchor was placed after clearing debrided some tissue remnant about the medial anterior supination footprint optimizing bone tendon healing with the suture anchor containing the biceps tenodesis repair suture. The tenodesis was stable through testing. The rotator cuff defect was then closed [id number] fashion with the knotless repair suture placed with the scorpion and then shuttled back through the anchor eyelet and provisionally tensioned. An additional 3 suture tapes were then placed simple [id number] stitches with the suture tape and secured knots directed anteriorly superiorly with SMC arthroscopic knots with excellent closure of the somewhat irregular medial tendinous defect from medial to lateral. The [id number] sutures had nice compression which did leave the initial knotless repair suture lax. The repair was stable through probing and motion. The shoulder was drained of arthroscopic fluid. All portal sites were copiously irrigated. These incisions were closed using 3-0 Monocryl in a buried fashion and then covered with Mastisol, Steri-Strips, Xeroform, dry gauze, and ABDs. The dressings were covered and secured with Medipore tape. The operative extremity was placed into a sling for immobilization. The patient awoke from anesthesia without complication and was transferred to the recovery room in a stable condition. Date of Procedure: 05/30/25
--- NOTE | 2025-05-30 09:20 | W.ANESPRE ---
General Info Date of Service Date Performed: 05/30/25 Height: 5 ft 11.25 in Weight: 96.615 kg Body Mass Index (BMI): 29.5 Surgical Procedure: Operation Date: 05/30/25 10:55 Proposed Procedure Side Surgeon p Shoulder Rotator Cuff Arthroscopic w/Extensive Debridement, Biceps Tenodesis, Subacromial Decompression Left Román Montaño MD Meds Allergies and Home Medications Allergies Allergy/AdvReac Type Severity Reaction Status Date / Time Tetanus Vaccines and Toxoid Allergy Severe COLD Verified 05/30/25 09:47 (Tetanus Vaccines \T\ Toxoid) SWEATS naproxen AdvReac Unknown WORSENING Verified 05/30/25 09:47 ULCERATIVE COLITIS zolpidem AdvReac Unknown MUSCLE Verified 05/30/25 09:47 TWITCH lisinopril AdvReac Intermediate DAYO cough Uncoded 05/30/25 09:47 Home Medication ?Medication ?Instructions ?Recorded spironolactone 100 mg tablet 100 mg PO DAILY #14 tabs 02/26/25 mirabegron 50 mg tablet,extended 50 mg PO DAILY Urinary issues 04/17/25 release 24 hr (Myrbetriq) gabapentin 100 mg capsule 100 mg PO BID #180 caps 05/02/25 hydroxychloroquine 200 mg tablet 400 mg (2 x 200 mg) PO DAILY 05/02/25 (Plaquenil) discoid lupus #180 tabs losartan 100 mg tablet 100 mg PO DAILY #90 tabs 05/02/25 memantine 10 mg tablet 10 mg PO BID #180 tabs 05/02/25 mesalamine 1.2 gram tablet,delayed 2.4 g (2 x 1.2 gram) PO BID #360 05/02/25 release tabs oxybutynin chloride 5 mg 5 mg PO DAILY #30 tabs 05/02/25 tablet,extended release 24 hr sertraline 50 mg tablet 50 mg PO DAILY #90 tabs 05/02/25 sildenafil 100 mg tablet (Viagra) 100 mg PO DAILY PRN sexual 05/02/25 activity #24 tabs docusate sodium 100 mg capsule 100 mg PO DAILY 05/30/25 (Dulcolax Stool Softener (docusate)) omeprazole 20 mg capsule,delayed 20 mg DAILY Heartburn/acid reflux 05/30/25 release oxycodone 5 mg tablet 5 - 10 mg (1 - 2 x 5 mg) PO .q4-6h 05/30/25 PRN severe pain #18 tabs tamsulosin 0.4 mg capsule 0.8 mg PO DAILY 05/30/25 Current Visit Medications: Current Medications Generic Name Dose Route Start Last Admin Trade Name Freq PRN Reason Stop Dose Admin Ringer's Solution 1,000 mls @ 30 mls/hr 05/30/25 06:00 IV 05/30/25 23:59 INFUSION JUAN Cefazolin Sodium/Dextrose 2 gm in 50 mls @ 100 mls/hr 05/30/25 06:00 Ancef Duplex IVPB 05/30/25 23:59 PREOP JUAN Tranexamic Acid/Sodium Chloride 1,000 mg in 100 mls @ 600 mls/hr 05/30/25 06:00 IVPB 05/30/25 23:59 PREOP JUAN IV Miscellaneous Supplies 1 each 05/30/25 06:00 Iv Access IV 05/30/25 23:59 DIRECTED JUAN Oxycodone HCl 0 mg 05/30/25 07:14 Oxycodone 5 Mg Tab PO 06/29/25 07:13 Q3H PRN PRN Pain Sodium Chloride 0 ml 05/30/25 06:00 Normal Saline Flush 10 Ml Syr IV 05/30/25 23:59 PRN PRN Sodium Chloride 0 ml 05/30/25 06:00 Normal Saline 10 Ml Vial IJ 05/30/25 23:59 DIRECTED PRN Sterile Water 0 ml 05/30/25 06:00 Water,Injection,Sterile 10 Ml Vial IJ 05/30/25 23:59 DIRECTED PRN PFSH Active Problems Active Problems: Problem Status Onset Code Trochanteric bursitis, right hip Acute M70.61 Left rotator cuff tear Acute M75.102 Bursitis of left shoulder Acute M75.52 SLAP lesion of left shoulder Acute S43.432A Degenerative joint disease of right hip Chronic M16.11 Osteoarthritis of right knee Chronic M17.11 Osteoarthritis of left shoulder Acute M19.012 Rotator cuff arthropathy of right shoulder Acute M12.811 Urinary urgency Acute R39.15 Right arm pain Acute M79.601 Lower urinary tract symptoms (LUTS) Acute R39.9 Mild cognitive impairment Acute G31.84 Low vitamin B12 level Acute R79.89 Lumbar back pain Acute M54.50 Memory loss Acute R41.3 Fatigue Acute R53.83 Tick bite Acute W57.XXXA Greater trochanteric bursitis of left hip Acute M70.62 Acute right hip pain Acute M25.551 Essential hypertension Acute I10 Abdominal pain Acute R10.9 Polydipsia Acute R63.1 BPH w urinary obs/LUTS Acute N40.1, N13.8 Ulcerative colitis Acute K51.90 Tubular adenoma of colon Acute D12.6 Sexual function problem Acute F52.9 Irritable bowel syndrome without diarrhea Acute 12/07/16 K58.9 Insomnia Acute 12/07/16 G47.00 History of tobacco use Acute Z87.891 Heart murmur Acute R01.1 Diverticulosis of colon without diverticulitis Acute K57.30 Discoid lupus erythematosus Acute L93.0 Dermatitis Acute L30.9 Depression Acute 12/07/16 F32.9 Carpal tunnel syndrome Acute 07/16/13 G56.00 Medical History Medical History Spinal stenosis surgery 2006 Surgical History Surgical History History of spinal surgery 2009 Status post appendectomy Status post rotator cuff repair (08/04/15) spinal repair (~2006) Rotator Cuff Repair 08/04/15 [facility];RIGHT Colonoscopy - [facility] (~05/2023) polups Tobacco Smoking/Tobacco Use Status: Current every day Tobacco Type: smokeless tobacco Smokeless tobacco user: snuff Passive smoking exposure: Yes Second hand exposure: Yes Alcohol Alcohol Intake: former Year quit: 2019 Substance Use Substance use: Rarely Substance use type: marijuana Vital Signs and Lab Results Vital Signs Most Recent Vital Signs in EMR: Temp Pulse Resp BP Pulse Ox 36.6 C 60 16 155/81 H 98 05/30/25 09:47 05/30/25 09:47 05/30/25 09:47 05/30/25 09:47 05/30/25 09:47 Imaging and Studies Imaging and Studies Study information below may be from another EMR and interpreted by another provider. Please see original notes in EMR for more complete details. EKG Summary: 05-22-24 Exam: Resting ECG Reason for Exam: chest pain Patient Location: E HR:68 bpm ECG Measurements Heart Rate 68 AXIS TX 148 P 57 QRSd 100 QRS 5 QT 385 T43 QTc 410 Conclusion Sinus rhythm 68 normal axis no stemi Pulmonary Function Summary: 07/20/24 Indications: Dyspnea Interpretation Spirometry: No airflow limitation. No bronchodilator response. Lung Volumes: Normal lung volumes Diffusion Capacity: Normal diffusion Airway Pressure: Normal airways resistance Note: Normal pulmonary function testing Clinical Correlation therefore is recommended. Anesthesia Assessment and Plan Anesthesia History Personal History: No History of Anesthesia Complications Family History: No Family History of Anesthesia Complications Exercise Tolerance Exercise Tolerance: Metabolic Equivalents>4 Pertinent Negatives Pertinent Negatives: No Symptoms of GERD, No Major Pulmonary Symptoms or Complaints and No History of CVA/TIA Cardiac & Pulmonary Exam Cardiac Exam: Known Innocent Murmur Pulmonary Exam: Clear Bilateral Breath Sounds Implantable Cardiac Device Does patient have a Pacemaker or an ICD?: No Airway Exam Known Difficult Airway: No Mallampati Class: 2 Mouth Opening: Normal (> 3cm) Thyromental Distance: Greater than 3 cm Neck Range of Motion: Full ROM Neck Circumference: Normal Teeth Condition: Normal Dentition and Generalized Poor Dentition ASA Classification ASA Score: ASA 2 Emergency Case?: No NPO Status NPO Status: NPO Clears >2 hours, Solids >8 hours Anesthesia Plan Resuscitation Status: Full Code Anesthesia Technique: General Anesthesia Airway Planned: Endotracheal Tube Pain Management: Surgeon and patient request nerve block Monitors Used: Standard Monitors and SedLine
[2025-05-30] MEDS: Lactated Ringers 1,000 ML 30 ML IV (10:09)
[2025-05-30] MEDS: ceFAZolin 2 GM/50 ML BAG IVPB (11:28)
[2025-05-30] MEDS: TRANEXAMIC ACID/SOD. CHL. 1,000 MG/100 ML BAG 600 MG IVPB (11:39)
[2025-05-30] MEDS: Bupivacaine 0.25% Pres-Free W/EPI 30 ML VIAL (11:55)
[2025-05-30] MEDS: EPINEPHrine 10 MG/10 ML ML (13:10)
--- NOTE | 2025-05-30 14:09 | W.ANESPOSTOP ---
Postoperative Evaluation Date, Time and Location Date Performed: 05/30/25 Time Performed: 14:09 Patient Location: PACU Vital Signs Most Recent Imported Vital Signs: Most Recent Vital Signs Temp Pulse Resp BP Pulse Ox 36.6 C 54 L 13 126/52 L 96 05/30/25 13:57 05/30/25 14:01 05/30/25 14:01 05/30/25 14:00 05/30/25 14:01 Pain Score Most Recent Pain Score: Most Recent Pain Score Pain Level 0 05/30/25 13:57 Assessment Mental Status: Awake (Alert & Oriented to Patient Baseline) Airway and Respiratory Function: Patent airway with normal (patient baseline) respiratory exam Cardiovascular Function: Hemodynamically Stable Hydration Status: Adequately Hydrated Nausea & Vomiting: No Nausea or Vomiting Pain: Pt. Denies Any Pain Peripheral Nerve Block: Regional nerve block not resolved at time of post operative discharge
--- NOTE | 2025-05-30 14:12 | W.ANESNERVE ---
Nerve Block Single Injection Procedure Date and Time Date Performed: 05/30/25 Procedure Start: 11:00 Location Where Procedure Performed Procedure Location: Day Surgery Unit Reason Performed: Postoperative Analgesia Requesting Provider: Román Montaño Timeout Performed Timeout Performed: Yes Monitoring Used ECG, Blood Pressure, SpO2 and See EMR for corresponding vital signs Sterility Sterility: Hand Hygiene, Surgical Cap, Surgical Mask, Sterile Gloves, Sterile Drape/Sheet, Sterile Gown and Chlorhexidine Sedation Given During Procedure Sedation Given (Indicate Dose Given): No Sedation given Patient Mental Status Patient Mental Status: Awake Nerve Block 1st Nerve Block: Laterality: Left Block Type: Interscalene Ultrasound Image Saved?: Yes Needle / Catheter Used: 80mm SonoPlex II Local Anesthetic Bolus (Indicate Dose Given): Lidocaine used for local infiltration of skin, Bupivacaine 0.5% Dose:: 10m and Exparel Dose:: 10ml Additives (Indicate Dose Given): None Ultrasound: Sterile probe cover and gel used Nerve Stimulator: Primary Nerve Stimulator Technique and No twitch or parasthesia noted < 0.5 mA Paresthesia: None Procedure Tolerated: No Complications and Patient tolerated well Procedure Outcome: Successful Performed By: Corrine Carr Supervised By: Cruz Rowley
== END 2025-05-30 15:15 | disposition home or self-care (01) ==
PROVIDERS: PCP Nurse Practitioner Family; Visit Provider Student in an Organized Health Care Education/Training Program
PROC: (CPT 29827; principal; 2025-05-30 10:45)
DX: S43.432A Superior glenoid labrum lesion of left shoulder, initial encounter (principal); M75.102 Unspecified rotator cuff tear or rupture of left shoulder, not specified as traumatic; M75.52 Bursitis of left shoulder; X58.XXXA Exposure to other specified factors, initial encounter; G89.18 Other acute postprocedural pain
CPT/HCPCS: 29827; 29828; 29823; 29826; 64415; J0131; J0665; J0666; J0690; J1100; J1885; J2250; J2371; J2405; J2704; J3475

== ENCOUNTER 2025-06-25 15:19 | Outpatient (REF) | payer MEDICARE, OTHER, SELFPAY | END 2025-06-25 15:20 | disposition home or self-care (01) | LOC: LBN 15:19 | PROVIDERS: PCP Nurse Practitioner Family; Visit Provider Internal Medicine Gastroenterology | DX: K52.9 Noninfective gastroenteritis and colitis, unspecified (principal) | CPT/HCPCS: 83993 ==

== ENCOUNTER → 2025-07-22 09:41 | Outpatient (BNVA) | payer MEDICARE, OTHER, SELFPAY | PROVIDERS: PCP Nurse Practitioner Family; Referring Provider Nurse Practitioner Family; Visit Provider Student in an Organized Health Care Education/Training Program | DX: M75.102 Unspecified rotator cuff tear or rupture of left shoulder, not specified as traumatic (principal); M75.52 Bursitis of left shoulder; S43.432D Superior glenoid labrum lesion of left shoulder, subsequent encounter; X58.XXXD Exposure to other specified factors, subsequent encounter | CPT/HCPCS: 99024 ==